=== PATIENT | female | born 1960 | race Caucasian/White ===

== ENCOUNTER → 2018-10-12 15:19 | Outpatient (CLI) | payer OTHER, SELFPAY ==
--- NOTE | 2018-10-12 15:28 | XR_ITS ---
XR hip LT 2-3V w/pelvis HISTORY: ITS.REASON: LT HIP PAIN ORDERING PHYSICIAN: Varun Turcios MD PATIENT AGE: 58 years COMPARISON: None FINDINGS: No fracture or dislocation is evident. No significant degenerative change. No lytic or blastic change. Unremarkable soft tissues IMPRESSION: Negative hip
== END ==
PROVIDERS: PCP Family Medicine; Visit Provider Family Medicine
DX: M25.552 Pain in left hip (principal)
CPT/HCPCS: 73502

== ENCOUNTER → 2019-11-17 12:43 | Outpatient (CLI) | payer BC, SELFPAY ==
[2019-11-17 14:46] LABS: Basophils # 0.1 K/mm3 (0-0.2); Basophils % 1.2 % (0.1-2.0); Eosinophils % 0.5 % (0.1-12.0); Hematocrit 46.2 % (37.0-47.0); Hemoglobin 15.6 g/dL (12.2-16.2); Lymphocytes # 1.6 K/mm3 (0.7-4.5); Lymphocytes % 27.5 % (10-50); Mean Corpuscular HGB Conc 33.7 g/dL (31.8-35.4); Mean Corpuscular Hemoglobin 29.7 pg (27.0-31.2); Mean Corpuscular Volume 88.2 fl (81-99); Mean Platelet Volume 8.7 fl (7.4-10.4); Monocytes # 0.4 K/mm3 (0.1-1.0); Monocytes % 7.8 % (1.7-9.3); Neutrophils # 3.6 K/mm3 (1.8-7.8); Neutrophils % 63.1 % (37.0-80.0); Platelet Count 305 K/mm3 (142-424); Red Blood Count 5.24 M/mm3 (4.20-5.40); Red Cell Distribution Width 13.6 % (11.5-17.5); White Blood Count 5.7 K/mm3 (4.8-10.8)
== END ==
PROVIDERS: PCP Family Medicine; Visit Provider Physician Assistant
DX: Z20.828 Contact with and (suspected) exposure to other viral communicable diseases (principal); U07.1 COVID-19
CPT/HCPCS: 36415; 85025; U0003

== ENCOUNTER 2021-12-22 09:09 | Emergency (ER) | payer OTHER, SELFPAY ==
[2021-12-22 09:42] VITALS: BP 128/83; PULSE 95; RESP 18; TEMP 36.7; O2SAT 96; BMI 24.0
--- NOTE | 2021-12-22 09:48 | EXP.UTC ---
Discharge Plan Disposition Patient Disposition: Home, Self-Care Condition: Good Prescriptions Prescriptions: New amoxicillin [amoxicillin] 875 mg tablet 875 mg PO Q12H Qty: 20 0RF Referrals Follow up/Referrals: Varun Turcios MD [Primary Care Provider] - See instructions Activity Restrictions/Add. Instructions Additional Instructions/Restrictions: Drink plenty of fluids. Take tylenol for pain or fever. Take the medications as directed. Follow up with your regular doctor. Follow up with your dentist as soon as they can see you. GO TO THE ER FOR ANY WORSENING SYMPTOMS Clinical Impressions Clinical Impression: Abscess, dental, Jaw pain, Pain, dental Instructions Patient Instructions: Tooth Abscess, DI for Tooth Abscess Discharge ED Provider: Rizwan Sauer [facility] General Stated complaint: dental pain Mode of Arrival: Ambulatory Source of Information: Patient Limitations: No Limitations Time Seen by Provider: 12/22/21 09:48 Description of Symptoms (Recalled from Triage Doc. by RN): pt comes in with c/o dental pain. pt believes her wisdom tooth is infected. right side of pts face is swollen. symptoms have been ongoing since 12/20. HEENT Symptoms (Recalled from RN notes): Yes Resp Symptoms (Recalled from RN notes): No Skin Symptoms (Recalled from RN notes): No MS Symptoms (Recalled from RN notes): No Functional Status (Recalled from RN notes): n/a History of Present Illness Provider Complaint: she states that for the past 3 days she has had pain and swelling of her right lower jaw in her mouth. She believes that she has an infected tooth. She has an appointment at her dentist next week, but she is having swelling of her right cheek area. She denies any fever or chills. Related Data Previous Rx's Medication Instructions Recorded amoxicillin 875 mg tablet 875 mg PO Q12H #20 tabs 12/22/21 Allergies Allergy/AdvReac Type Severity Reaction Status Date / Time No Known Allergies Allergy Verified 12/22/21 09:45 Worker's Comp Is this a Worker's Comp case?: No PFSH PFSH Social History Smoking Status: Never smoker alcohol intake: never current occupational status: employed Travel in the last 8 weeks: None ROS Obtained: Yes All systems reviewed & no additional complaints except as documented Physical Exam General General appearance: alert and in no apparent distress Head Head exam: atraumatic, normocephalic and normal inspection Eye Eye exam: Present normal appearance, PERRL and EOMI ENT ENT exam: Present mucous membranes moist, TM's normal bilaterally and normal external ear exam Expanded ENT Exam Teeth exam: Present dental caries, fractured tooth # and gingival swelling Neck Neck exam: Present normal inspection, full ROM and trachea midline; Absent meningismus or lymphadenopathy Chest Chest inspection: Present normal inspection and symmetric chest wall rise; Absent tenderness Respiratory Respiratory exam: Present normal lung sounds bilaterally; Absent respiratory distress Cardiovascular Cardiovascular exam: Present regular rate and normal rhythm; Absent JVD Abdominal Exam Abdominal exam: Present soft and normal bowel sounds; Absent distention, tenderness or guarding Extremities Exam Extremities exam: Present normal inspection, full ROM and normal capillary refill; Absent calf tenderness Back Exam Back exam: Present normal inspection; Absent tenderness Neurological Exam Neurological exam: Present alert and oriented X3 Psychiatric Psychiatric exam: Present normal affect and normal mood Skin Skin exam: Present warm, dry, intact and normal color Lymphatic Lymphatic Findings: no adenopathy Medical Decision Making Medical Records Medical records reviewed: No I reviewed the patient's medical records. Andrew Inquiry Pt receiving controlled substance: No Vital Signs: 12/22/21 09:42 Temperature 98.0 F Temperature Source Oral Pulse Rate [Left Radial] 95 H Resp
[2021-12-22 10:39] VITALS: BP 128/83; PULSE 95; RESP 18; TEMP 36.7
== END 2021-12-22 10:39 | disposition home or self-care (01) ==
PROVIDERS: Emergency Provider Nurse Practitioner Family; PCP Family Medicine
DX: K04.7 Periapical abscess without sinus (principal); R68.84 Jaw pain
CPT/HCPCS: 96372; 99213; G0463; J0696

== ENCOUNTER 2023-05-09 15:17 | Inpatient (IN) | payer MEDICARE, SELFPAY ==
[2023-05-09 15:41] VITALS: BP 133/72; PULSE 102; RESP 24; TEMP 36.5; O2SAT 91
[2023-05-09 15:47] VITALS: BMI 25.4
--- NOTE | 2023-05-09 16:16 | XR_ITS ---
PROCEDURE INFORMATION: Exam: XR Chest Exam date and time: 05/09/2023 4:47 PM Age: 63 years old Clinical indication: Condition or disease; Other: Covid; Additional info: Covid, hypoxia TECHNIQUE: Imaging protocol: Radiologic exam of the chest. Views: 1 view. COMPARISON: No relevant prior studies available. FINDINGS: Lungs: There are minimally increased interstitial markings in the lung bases, age indeterminate without prior study for comparison. The lungs appear. No focal areas of consolidation. Pleural spaces: No pleural effusions. Negative for pneumothorax. Heart/Mediastinum: Cardiac silhouette and pulmonary vasculature are within range of normal. Calcified mediastinal lymph nodes indicate prior granulomatous disease. Bones/joints: There is no evidence of acute fracture. IMPRESSION: Minimally increased interstitial markings in the lung bases, age indeterminate without prior study for comparison.
--- NOTE | 2023-05-09 16:44 | P.HP_ITS ---
History of Present Illness *Admission Date: 05/09/23 *Reason for visit:: covid with hypoxic respiratory failure *History of present illness: Ms. Hayward is a 63-year-old female who was seen in the office last week and tested positive for COVID-19. She was given Paxlovid but did not take the medication due to fear of side effects. She states this is the second time she has had COVID. She has had issues with her lungs since the first episode of COVID. Her oxygen has been lower and she has had periods of wheezing and shortness of breath. During this episode of COVID, her oxygen has been in the 80s at home and drops when she walks. She is extremely short of breath and has been wheezing. She has not had any imaging with either COVID episode. She has also not had any inhalers or neb treatments. Her oxygen was 84% on room air in the office and she was started on 2 L of oxygen and directly admitted. [facility] Disclaimer: The information contained in this section may have been updated after the patient was seen, as this information can be updated by other users. Medical History Abscess, dental COVID-19 Tobacco use Surgical History (Updated 05/09/23 @ 16:48 by YANICK Quiros) History of tooth extraction Family History (Updated 05/09/23 @ 16:48 by YANICK Quiros) Coronary artery disease Hyperlipidemia Cancer Social History (Updated 05/09/23 @ 16:20 by Atiya Mack RN) Smoking Status: Current every day smoker alcohol intake: never current occupational status: employed and retired Travel in the last 8 weeks: None Review of Systems Constitutional Constitutional: Reports body ache(s), Reports chills, Reports fatigue, Reports fever(s) and Reports weakness Eyes Eyes: Denies blurry vision and Denies diplopia ENT Ears, Nose, Mouth, and Throat: Reports nasal congestion, Reports sore throat and Reports vertigo *Cardiovascular Cardiovascular: Reports chest pain and Reports dyspnea *Respiratory Respiratory: Reports cough, Reports dyspnea and Reports wheezing *Gastrointestinal Gastrointestinal: Denies abdominal pain, Denies loose stools, Denies nausea and Denies vomiting *Genitourinary Genitourinary: Denies difficulty voiding and Denies dysuria *Musculoskeletal Musculoskeletal: Denies arthralgias and Reports myalgias *Neurologic Neurologic: Reports vertigo and Reports weakness Endocrine Endocrine: Reports fatigue Allergic/Immunologic Allergic/Immunologic: Reports wheezing Meds Home Medications and Allergies New Prescriptions to Start Prescriptions: Allergies Allergy/AdvReac Type Severity Reaction Status Date / Time No Known Allergies Allergy Verified 12/22/21 09:45 Exam Data for Last 24 hours Vital signs and Labs for Last 24 Hours: Temp Pulse Resp BP Pulse Ox O2 Del Method 97.7 F 102 H 24 133/72 91 L Room Air 05/09/23 15:41 05/09/23 15:41 05/09/23 15:41 05/09/23 15:41 05/09/23 15:41 05/09/23 15:41 I & O for Last 24 hours: Intake & Output 05/07/23 05/08/23 05/09/23 05/10/23 11:59 11:59 11:59 11:59 Weight 148 lb 2 oz Constitutional Constitutional: mild distress *Routine HEENT Exam Head: Present normocephalic and atraumatic Eye: Present EOMI and PERRL ENT: Present mucous membranes dry *Routine Neck Exam Neck: Present supple and full ROM *Routine Respiratory Exam Respiratory: Present wheezes; Absent rales *Routine Cardiovascular Exam Cardiovascular: Present RRR and tachycardia *Routine Abdominal Exam Abdominal: Present soft and normoactive bowel sounds; Absent tenderness *Routine Rectal Exam Rectal:: deferred *Routine Genitalia Exam Genitalia:: deferred *Routine Extremities Exam Extremities: Absent cyanosis, clubbing or edema *Routine Skin Exam Skin: Present intact; Absent erythema *Routine Neurological Exam Neurological: Present alert and oriented X3 Assessment and Plan *Assessment and plan (1) COVID-19: Status: Acute Category: Medical Code(s): U07.1 - COVID-19 (2) Hypoxic respiratory failure: Status: Acute Category: Medical Code(s): J96.91 - Respiratory failure, unspecified with hypoxia Plan Patient was placed on 2L NC in our office and directly admitted. Covid protocols were ordered. Will discuss further care with Dr. Turcios. Dr. Turcios entry - Saw patient, agree with above note.
--- NOTE | 2023-05-09 16:58 | PC.NURSE ---
arrived to floor by w/c from office at 3:27
[2023-05-09] MEDS: 0.9 % SODIUM CHLORIDE 1000ML 1,000 ML 100 ML IV (17:02)
[2023-05-09] MEDS: ASCORBIC ACID 500MG TAB 500 MG PO ×2 (17:04→21:13)
[2023-05-09] MEDS: ERGOCALCIFEROL 50,000 UNITS (1.25MG) CAPSULE 50000 UNIT PO (17:05)
[2023-05-09] MEDS: DEXAMETHASONE 4MG/ML 1ML VIAL 6 MG IV (17:06)
[2023-05-09] MEDS: ZINC SULFATE 220MG CAPSULE 220 MG PO (17:07)
[2023-05-09 18:13] LABS: Alanine Aminotransferase 22 U/L (12-78); Albumin Level 3.2 g/dl (3.5-5.0); Alkaline Phosphatase 104 U/L (38-126); Anion Gap 6.7 mEq/L (5-15); Aspartate Amino Transferase 31 U/L (14-36); Bilirubin,Total 0.6 mg/dl (0.2-1.3); Blood Urea Nitrogen 6 mg/dl (7-17); Calcium 8.8 mg/dl (8.4-10.2); Carbon Dioxide 36 mmol/L (22.0-30.0); Chloride 96 mmol/L (98-107); Creatinine Clearance Estimated 59 mL/min (50-200); Estimated Glomerular Filt Rate 100 ml/min (>60); GFR (African American) 121 ML/MIN (>60); Globulin 3.2 g/dL (1.3-3.2); Glucose 111 mg/dl (74-100); Lactic Acid 0.8 mmol/L (0.7-2.1); Potassium 3.7 mmoL/L (3.5-5.1); Sodium 135 mmol/L (136-145); Total Protein,Serum 6.4 g/dl (6.3-8.2)
[2023-05-09 18:18] LABS: C-Reactive Protein 135.8 mg/L (0-4)
[2023-05-09 18:19] LABS: D-Dimer 0.51 ug/mL (0.0-0.5)
[2023-05-09 18:38] LABS: Basophils % 0.1 % (0.1-2.0); Eosinophils % 0.1 % (0.1-12.0); Hemoglobin 13.1 g/dL (12.2-16.2); Lymphocytes # 1.7 K/mm3 (0.7-4.5); Lymphocytes % 10.7 % (10-50); Mean Corpuscular HGB Conc 32.9 g/dL (31.8-35.4); Mean Corpuscular Volume 88.2 fl (81-99); Mean Platelet Volume 9.5 fl (7.4-10.4); Monocytes # 0.9 K/mm3 (0.1-1.0); Neutrophils # 12.9 K/mm3 (1.8-7.8); Neutrophils % 83.1 % (37.0-80.0); Platelet Count 425 K/mm3 (142-424); Red Blood Count 4.53 M/mm3 (4.20-5.40); Red Cell Distribution Width 12.8 % (11.5-17.5); White Blood Count 15.5 K/mm3 (4.8-10.8)
[2023-05-09 18:41] LABS: MANUAL DIFFERENTIAL MANUAL DIFFERENTIAL (MANUAL DIFF)
--- NOTE | 2023-05-09 18:45 | PC.NURSE ---
patient is alert and oriented x4. direct admit from drs office. at bedside. o2 sats staying at 92-93 percent with 02 going 2l nc. denies any pain at this time.
[2023-05-09 18:58] LABS: Coronavirus 19, PCR Detected (NotDetected); Influenza A, PCR Not Detected (NotDetected); Influenza B, PCR Not Detected (NotDetected)
[2023-05-09] MEDS: IPRATROPIUM/ALBUTEROL 3 ML NEB IH (19:07)
[2023-05-09 19:12] VITALS: PULSE 91; PULSE 98; O2SAT 93
[2023-05-09 19:32] LABS: Lactate Dehydrogenase 165 U/L (313-618)
--- NOTE | 2023-05-09 19:32 | ECG_ITS ---
APPROVED REPORT Exam: Resting ECG HR:99 bpm ECG Measurements Heart Rate 99 AXES TX 135 P 80 QRSd 82 QRS 64 QT 331 T 77 QTc 387 Conclusion SINUS RHYTHM MINIMAL ST DEPRESSION [0.025+ mV ST DEPRESSION] BORDERLINE ECG UNCONFIRMED REPORT Electronically signed by : Rasta Kaur MD 05/10/2023 06:28:11
[2023-05-09 20:00] VITALS: BP 120/67; PULSE 96; RESP 20; TEMP 37.2; O2SAT 90; O2SAT 94
[2023-05-09] MEDS: FAMOTIDINE 20MG TABLET 20 MG PO (21:13)
[2023-05-09] MEDS: ENOXAPARIN 40MG/0.4ML SYRINGE 40 MG SQ (21:13)
[2023-05-09 21:58] LABS: Lymphocytes % 16 % (10-50); Monocytes % 3 % (2-9); Neutrophils % 80 % (42-76); Platelet Estimate Normal; RBC Morphology Normal; Total Cells Counted 100
[2023-05-10] VITALS (11 sets, daily range): BP systolic 108–118; BP diastolic 61–68; PULSE 70–102; RESP 18–20; TEMP 36.4–37.1; O2SAT 88–97; BMI 25.9
[2023-05-10] MEDS: 0.9 % SODIUM CHLORIDE 1000ML 1,000 ML 100 ML IV (03:19)
--- NOTE | 2023-05-10 04:22 | PC.NURSE ---
Pt is alert and oriented x4, and currently on 3L of O2 and tolerating it well. Pt remains in precautions for COVID. Pt has no complaints and denies needs at this time
[2023-05-10] MEDS: IPRATROPIUM/ALBUTEROL 3 ML NEB IH ×4 (06:10→22:15)
--- NOTE | 2023-05-10 06:19 | PC.NURSE ---
RT notified nurse Pt now on 1L of O2 sating at 96%
[2023-05-10 07:56] LABS: Chloride 100 mmol/L (98-107); Sodium 137 mmol/L (136-145)
[2023-05-10 07:59] LABS: Blood Urea Nitrogen 5 mg/dl (7-17); Calcium 8.6 mg/dl (8.4-10.2); Carbon Dioxide 33 mmol/L (22.0-30.0); Creatinine Clearance Estimated 61 mL/min (50-200); Estimated Glomerular Filt Rate 124 ml/min (>60); GFR (African American) 150 ML/MIN (>60); Glucose 139 mg/dl (74-100)
[2023-05-10 08:03] LABS: Basophils % 0.1 % (0.1-2.0); Eosinophils # 0.1 K/mm3 (0.0-0.4); Eosinophils % 0.9 % (0.1-12.0); Hematocrit 39.9 % (37.0-47.0); Hemoglobin 12.9 g/dL (12.2-16.2); Lymphocytes # 1.3 K/mm3 (0.7-4.5); Lymphocytes % 9.5 % (10-50); Mean Corpuscular HGB Conc 32.3 g/dL (31.8-35.4); Mean Corpuscular Hemoglobin 28.8 pg (27.0-31.2); Mean Corpuscular Volume 89.1 fl (81-99); Mean Platelet Volume 9.5 fl (7.4-10.4); Monocytes # 0.5 K/mm3 (0.1-1.0); Monocytes % 3.6 % (1.7-9.3); Neutrophils # 12.1 K/mm3 (1.8-7.8); Neutrophils % 85.9 % (37.0-80.0); Platelet Count 439 K/mm3 (142-424); Red Blood Count 4.47 M/mm3 (4.20-5.40); Red Cell Distribution Width 12.9 % (11.5-17.5); White Blood Count 14.1 K/mm3 (4.8-10.8)
[2023-05-10 08:05] LABS: MANUAL DIFFERENTIAL MANUAL DIFFERENTIAL (MANUAL DIFF)
--- NOTE | 2023-05-10 09:16 | EXP.ACUTE.PN ---
Subjective *Date: 05/10/23 *Time: 09:16 Interval history: Patient with no new complaints today, feels a little better today. Medical Exam Vital signs and Labs for Last 24 Hours: Vital Signs Temp Pulse Pulse Resp BP Pulse Ox O2 Del Method 05/10/23 08:00 97.6 F 91 H 20 108/61 L 94 L Nasal Cannula 05/10/23 06:53 Nasal Cannula 05/10/23 06:10 70 05/10/23 06:10 75 05/10/23 06:10 96 Nasal Cannula 05/10/23 05:00 Nasal Cannula 05/10/23 04:00 97.6 F 75 18 114/67 97 Nasal Cannula 05/10/23 00:00 98.7 F 74 18 108/66 L 96 Nasal Cannula 05/10/23 03:00 Nasal Cannula 05/10/23 00:55 Nasal Cannula 05/09/23 23:00 Nasal Cannula 05/09/23 21:00 Nasal Cannula 05/09/23 20:00 94 L Nasal Cannula 05/09/23 20:00 99.0 F 96 H 20 120/67 90 L Nasal Cannula 05/09/23 19:12 91 H 05/09/23 19:12 98 H 05/09/23 19:12 93 L Nasal Cannula 05/09/23 18:38 Nasal Cannula 05/09/23 17:00 Nasal Cannula 05/09/23 15:41 97.7 F 102 H 24 133/72 91 L Room Air O2 Flow Rate 05/10/23 08:00 2 05/10/23 06:53 1 05/10/23 06:10 05/10/23 06:10 05/10/23 06:10 2 05/10/23 05:00 2 05/10/23 04:00 2 05/10/23 00:00 2 05/10/23 03:00 2 05/10/23 00:55 2 05/09/23 23:00 2 05/09/23 21:00 2 05/09/23 20:00 2 05/09/23 20:00 2 05/09/23 19:12 05/09/23 19:12 05/09/23 19:12 2 05/09/23 18:38 05/09/23 17:00 2 05/09/23 15:41 Intake and Output 05/09/23 05/10/2305/10/24 23:59 07:59 15:59 Intake Total 240 / 480 240 / 510 270 / 510 Output Total 0 / 0 0 / 0 0 / 0 Balance 240 / 480 240 / 510 270 / 510 Intake: Intake, Oral Amount 240 / 480 240 / 510 270 / 510 Output: Output, Urine Amount 0 / 0 0 / 0 0 / 0 Other: Number of Unmeasured Voids 1 1 Weight 151 lb 14.4 oz Patient Weight 05/10/23 23:59 Weight 151 lb 14.4 oz Laboratory Results - last 24 hr 05/09/23 17:22: WBC 15.5 H, RBC 4.53, Hgb 13.1, Hct 40.0, MCV 88.2, MCH 29.0, MCHC 32.9, RDW 12.8, Plt Count 425 H, MPV 9.5, Neut % (Auto) 83.1 H, Lymph % (Auto) 10.7, [place] % (Auto) 6.0, Eos % (Auto) 0.1, Baso % (Auto) 0.1, Neut # (Auto) 12.9 H, Lymph # (Auto) 1.7, [place] # (Auto) 0.9, Eos # (Auto) 0.0, Baso # (Auto) 0.0, Total Counted 100, Neutrophils % (Manual) 80 H, Lymphocytes % (Manual) 16, Monocytes % (Manual) 3, Basophils % (Manual) 1.0, Platelet Estimate Normal, RBC Morphology Normal, D-Dimer 0.51 H, Sodium 135 L, Potassium 3.7, Chloride 96 L, Carbon Dioxide 36 H, Anion Gap 6.7, BUN 6 L, Creatinine 0.60, Estimated Creat Clear 59, Estimated GFR 100, Est GFR ( Amer) 121, Glucose 111 H, Lactate 0.8, Calcium 8.8, Total Bilirubin 0.6, AST 31, ALT 22, Alkaline Phosphatase 104, Lactate Dehydrogenase 165 L, C-Reactive Protein 135.8 H, Total Protein 6.4, Albumin 3.2 L, Globulin 3.2, Albumin/Globulin Ratio 1.0 L 05/09/23 17:26: SARS-CoV-2 (PCR) Detected A, Influenza A Untype (PCR) Not detected, Influenza Type B (PCR) Not detected 05/10/23 07:20: WBC 14.1 H, RBC 4.47, Hgb 12.9, Hct 39.9, MCV 89.1, MCH 28.8, MCHC 32.3, RDW 12.9, Plt Count 439 H, MPV 9.5, Neut % (Auto) 85.9 H, Lymph % (Auto) 9.5 L, [place] % (Auto) 3.6, Eos % (Auto) 0.9, Baso % (Auto) 0.1, Neut # (Auto) 12.1 H, Lymph # (Auto) 1.3, [place] # (Auto) 0.5, Eos # (Auto) 0.1, Baso # (Auto) 0.0, Sodium 137, Potassium 3.0 L, Chloride 100, Carbon Dioxide 33 H, Anion Gap 7.0, BUN 5 L, Creatinine 0.50 L, Estimated Creat Clear 61, Estimated GFR 124, Est GFR ( Amer) 150 D, Glucose 139 H D, Calcium 8.6 I & O for Labs for Last 24 Hours: Intake & Output 05/07/23 05/08/23 05/09/23 05/10/23 23:59 23:59 23:59 23:59 Intake Total 240 / 480 510 / 510 Output Total 0 / 0 0 / 0 Balance 240 / 480 510 / 510 Weight 148 lb 2 oz 151 lb 14.4 oz Constitutional: Present no acute distress Respiratory: Present wheezes (rare) and normal respiratory effort Cardiac: Present Reg Rate and Rhythm GI: Present normal bowel sounds; Absent tenderness Extremities: Present normal inspection and full ROM Skin: Present intact; Absent erythema Neuro: Present Grossly Intact and moves all extremities Assessment and Plan *Assessment and plan (1) COVID-19: Status: Acute Category: Medical Code(s): U07.1 - COVID-19 (2) Hypoxic respiratory failure: Status: Acute Category: Medical Code(s): J96.91 - Respiratory failure, unspecified with hypoxia (3) Hypokalemia: Status: Acute Category: Medical Code(s): E87.6 - Hypokalemia Plan Patient seems better today, replace potassium, wean supplemental oxygen when possible.
[2023-05-10 09:51] LABS: Lymphocytes % 7 % (10-50); Monocytes % 2 % (2-9); Neutrophils % 91 % (42-76); Platelet Estimate Normal; RBC Morphology Normal; Total Cells Counted 100
[2023-05-10] MEDS: ZINC SULFATE 220MG CAPSULE 220 MG PO (10:31)
[2023-05-10] MEDS: ASCORBIC ACID 500MG TAB 500 MG PO ×2 (10:31→21:14)
[2023-05-10] MEDS: FAMOTIDINE 20MG TABLET 20 MG PO ×2 (10:31→21:14)
[2023-05-10] MEDS: AZITHROMYCIN 250MG TABLET 500 MG PO (10:32)
[2023-05-10] MEDS: POTASSIUM CHLORIDE 20MEQ TAB 20 MEQ PO ×3 (10:32→21:13)
[2023-05-10] MEDS: DEXAMETHASONE 4MG/ML 1ML VIAL 6 MG IV (10:35)
--- NOTE | 2023-05-10 17:51 | PC.NURSE ---
Patient weaned to 1LNC. VS stable. Lung sounds expiratory wheezing in upper lobes, diminished in bases.
[2023-05-11] VITALS (10 sets, daily range): BP systolic 121–131; BP diastolic 59–71; PULSE 80–99; RESP 16–20; TEMP 36.4–36.8; O2SAT 90–95; BMI 25.9
--- NOTE | 2023-05-11 04:18 | PC.NURSE ---
PT IS ALERT AND ORIENTED X4. PT REMAINS IN [place]/[employer]TACT PRECAUTIONS AND IS CURRENTLY ON 1L OF O2, SATING AT 93%. PT HAS COMPLAINED OF TROUBLE SWALLOWING PILLS. MEDS PUT IN APPLESAUCE TO EASE SWALLOWING. PT HAS RESTED WELL THIS SHIFT, DENIES PAIN, AND OTHER NEEDS AT THIS TIME.
[2023-05-11] MEDS: IPRATROPIUM/ALBUTEROL 3 ML NEB IH ×3 (06:30→19:34)
--- NOTE | 2023-05-11 09:13 | EXP.ACUTE.PN ---
Subjective *Date: 05/11/23 *Time: 09:13 Interval history: Patient with no new complaints today, still with some SOB, attempted to wean supplemental O2 off this morning and sats dropped, she was put back on 2 L/min/nc Medical Exam Vital signs and Labs for Last 24 Hours: Vital Signs Temp Pulse Pulse Resp BP Pulse Ox O2 Del Method 05/11/23 08:00 97.6 F 97 H 16 121/66 94 L Nasal Cannula 05/11/23 07:50 Nasal Cannula 05/11/23 06:30 90 05/11/23 06:30 90 05/11/23 06:30 91 L Nasal Cannula 05/11/23 07:00 Nasal Cannula 05/11/23 04:00 97.7 F 80 18 126/71 93 L Room Air 05/11/23 04:36 Nasal Cannula 05/11/23 03:00 Nasal Cannula 05/11/23 00:00 98.3 F 95 H 18 122/67 95 Nasal Cannula 05/11/23 01:00 Nasal Cannula 05/10/23 20:00 97.8 F 89 18 118/68 93 L Nasal Cannula 05/10/23 23:00 Nasal Cannula 05/10/23 21:00 Nasal Cannula 05/10/23 20:00 91 L Nasal Cannula 05/10/23 20:00 97.8 F 89 18 118/68 93 L Nasal Cannula 05/10/23 22:16 Nasal Cannula 05/10/23 22:16 90 05/10/23 22:15 93 H 05/10/23 18:32 Nasal Cannula 05/10/23 17:20 Room Air 05/10/23 16:00 98.2 F 102 H 20 117/62 92 L Nasal Cannula 05/10/23 15:10 Nasal Cannula 05/10/23 14:28 98 H 05/10/23 14:28 92 H 05/10/23 14:28 95 Nasal Cannula 05/10/23 13:12 Nasal Cannula 05/10/23 11:07 Nasal Cannula 05/10/23 12:27 88 L Room Air 05/10/23 10:15 83 05/10/23 10:15 81 05/10/23 10:15 97 Nasal Cannula O2 Flow Rate 05/11/23 08:00 2 05/11/23 07:50 2 05/11/23 06:30 05/11/23 06:30 05/11/23 06:30 1 05/11/23 07:00 1 05/11/23 04:00 1 05/11/23 04:36 1 05/11/23 03:00 1 05/11/23 00:00 1 05/11/23 01:00 1 05/10/23 20:00 1 05/10/23 23:00 1 05/10/23 21:00 1 05/10/23 20:00 1 05/10/23 20:00 2 05/10/23 22:16 1 05/10/23 22:16 05/10/23 22:15 05/10/23 18:32 1 05/10/23 17:20 05/10/23 16:00 2 05/10/23 15:10 1 05/10/23 14:28 05/10/23 14:28 05/10/23 14:28 1 05/10/23 13:12 1 05/10/23 11:07 1 05/10/23 12:27 05/10/23 10:15 05/10/23 10:15 05/10/23 10:15 2 Intake and Output 05/10/23 05/11/23 05/11/23 23:59 07:59 15:59 Intake Total 470 / 3380 240 / 610 370 / 610 Output Total 0 / 0 0 / 0 Balance 470 / 3380 240 / 610 370 / 610 Intake: Intake, Oral Amount 470 / 1490 240 / 610 370 / 610 Output: Output, Urine Amount 0 / 0 0 / 0 Other: Number of Unmeasured Voids 1 1 Number of Bowel Movements 1 Weight 152 lb Patient Weight 05/11/23 23:59 Weight 152 lb Laboratory Results - last 24 hr 05/10/23 07:20: Total Counted 100, Neutrophils % (Manual) 91 H, Lymphocytes % (Manual) 7 L, Monocytes % (Manual) 2, Platelet Estimate Normal, RBC Morphology Normal I & O for Labs for Last 24 Hours: Intake & Output 05/08/23 05/09/23 05/10/23 05/11/23 23:59 23:59 23:59 23:59 Intake Total 240 / 480 3140 / 3380 610 / 610 Output Total 0 / 0 0 / 0 0 / 0 Balance 240 / 480 3140 / 3380 610 / 610 Weight 148 lb 2 oz 151 lb 14.4 oz 152 lb Constitutional: Present no acute distress Respiratory: Present wheezes (rare) and normal respiratory effort Cardiac: Present Reg Rate and Rhythm GI: Present normal bowel sounds; Absent tenderness Extremities: Present normal inspection and full ROM Skin: Present intact; Absent erythema Neuro: Present Grossly Intact and moves all extremities Assessment and Plan *Assessment and plan (1) COVID-19: Status: Acute Category: Medical Code(s): U07.1 - COVID-19 (2) Hypoxic respiratory failure: Status: Acute Category: Medical Code(s): J96.91 - Respiratory failure, unspecified with hypoxia (3) Hypokalemia: Status: Acute Category: Medical Code(s): E87.6 - Hypokalemia Plan Patient has been unable to take much potassium, will try again today, continue current treatment.
[2023-05-11 10:15] LABS: Basophils % 0.1 % (0.1-2.0); Eosinophils # 0.1 K/mm3 (0.0-0.4); Eosinophils % 0.3 % (0.1-12.0); Hematocrit 34.4 % (37.0-47.0); Hemoglobin 12.3 g/dL (12.2-16.2); Lymphocytes # 1.7 K/mm3 (0.7-4.5); Lymphocytes % 10.1 % (10-50); Mean Corpuscular HGB Conc 35.7 g/dL (31.8-35.4); Mean Corpuscular Hemoglobin 31.5 pg (27.0-31.2); Mean Corpuscular Volume 88.2 fl (81-99); Mean Platelet Volume 8.8 fl (7.4-10.4); Monocytes # 0.7 K/mm3 (0.1-1.0); Monocytes % 4.2 % (1.7-9.3); Neutrophils # 14.6 K/mm3 (1.8-7.8); Neutrophils % 85.2 % (37.0-80.0); Platelet Count 453 K/mm3 (142-424); Red Cell Distribution Width 13.1 % (11.5-17.5); White Blood Count 17.1 K/mm3 (4.8-10.8)
[2023-05-11 10:17] LABS: Chloride 102 mmol/L (98-107); Sodium 137 mmol/L (136-145)
[2023-05-11 10:20] LABS: Blood Urea Nitrogen 10 mg/dl (7-17); Creatinine Clearance Estimated 61 mL/min (50-200); Estimated Glomerular Filt Rate 124 ml/min (>60); GFR (African American) 150 ML/MIN (>60)
[2023-05-11 10:21] LABS: Calcium 8.5 mg/dl (8.4-10.2); Carbon Dioxide 33 mmol/L (22.0-30.0); Glucose 91 mg/dl (74-100)
[2023-05-11 10:28] LABS: MANUAL DIFFERENTIAL MANUAL DIFFERENTIAL (MANUAL DIFF)
[2023-05-11] MEDS: ASCORBIC ACID 500MG TAB 500 MG PO ×3 (11:05→21:36)
[2023-05-11] MEDS: AZITHROMYCIN 250MG TABLET 500 MG PO (11:05)
[2023-05-11] MEDS: DEXAMETHASONE 4MG/ML 1ML VIAL 6 MG IV (11:05)
[2023-05-11] MEDS: POTASSIUM CHLORIDE 20MEQ TAB 20 MEQ PO ×3 (11:06→21:36)
[2023-05-11] MEDS: FAMOTIDINE 20MG TABLET 20 MG PO ×2 (11:06→21:36)
[2023-05-11] MEDS: ZINC SULFATE 220MG CAPSULE 220 MG PO (11:07)
[2023-05-11 12:25] LABS: Eosinophils % 1 % (0-3); Lymphocytes % 8 % (10-50); Monocytes % 5 % (2-9); Neutrophils % 86 % (42-76); Platelet Estimate Slight Increase; RBC Morphology Normal; Total Cells Counted 100
--- NOTE | 2023-05-11 18:32 | PC.NURSE ---
Pt tolerating PO meds better today. Pt hasn't c/o pain this shift. VSS. Pt remains on RA at this time. Call light within reach.
[2023-05-12] VITALS (10 sets, daily range): BP systolic 113–134; BP diastolic 67–76; PULSE 78–113; RESP 16–22; TEMP 36.6–36.8; O2SAT 90–94; BMI 25.9
--- NOTE | 2023-05-12 08:04 | EXP.ACUTE.PN ---
Subjective *Date: 05/12/23 *Time: 09:00 Interval history: Patient states she feels better than last week. She continues with some cough but is less. She denies any pain. She does ambulate to the bathroom without problems but is short of breath with activity. She is eating okay. Bowels have not moved. Medical Exam Vital signs and Labs for Last 24 Hours: Vital Signs Temp Pulse Pulse Resp BP Pulse Ox O2 Del Method 05/12/23 04:00 98.0 F 78 18 118/67 94 L Nasal Cannula 05/12/23 06:58 Room Air 05/12/23 04:39 Room Air 05/12/23 03:00 Room Air 05/12/23 01:00 Room Air 05/12/23 00:00 98.3 F 85 18 113/68 94 L Room Air 05/11/23 20:00 98.0 F 91 H 18 123/66 94 L Room Air 05/11/23 20:00 Room Air 05/11/23 22:43 Room Air 05/11/23 21:00 Room Air 05/11/23 19:35 Nasal Cannula 05/11/23 19:35 90 05/11/23 19:34 93 H 05/11/23 18:38 Room Air 05/11/23 17:00 Nasal Cannula 05/11/23 15:00 Nasal Cannula 05/11/23 16:00 98.0 F 91 H 20 131/59 L 90 L Room Air 05/11/23 13:00 Nasal Cannula 05/11/23 11:57 97.9 F 99 H 18 123/64 92 L Room Air 05/11/23 11:00 Nasal Cannula 05/11/23 09:00 Nasal Cannula 05/11/23 10:30 94 H 05/11/23 10:30 93 H 05/11/23 10:30 94 L Nasal Cannula O2 Flow Rate FiO2 05/12/23 04:00 05/12/23 06:58 05/12/23 04:39 05/12/23 03:00 05/12/23 01:00 05/12/23 00:00 05/11/23 20:00 05/11/23 20:00 05/11/23 22:43 05/11/23 21:00 05/11/23 19:35 2 28 05/11/23 19:35 05/11/23 19:34 05/11/23 18:38 05/11/23 17:00 1 05/11/23 15:00 1 05/11/23 16:00 05/11/23 13:00 2 05/11/23 11:57 05/11/23 11:00 2 05/11/23 09:00 2 05/11/23 10:30 05/11/23 10:30 05/11/23 10:30 2 Intake and Output 05/11/23 05/12/23 05/12/23 19:59 03:59 11:59 Intake Total 1580 / 1580 240 / 1820 Output Total 0 0 Balance 1579 / 1579 240 / 1819 0 / 1819 Intake: Intake, Oral Amount 1580 / 1580 240 / 1820 Output: Output, Urine Amount 0 0 Other: Number of Voids 0 Number of Unmeasured Voids 1 2 1 Weight 152 lb Patient Weight 05/12/23 11:59 Weight 152 lb Laboratory Results - last 24 hr 05/11/23 09:50: WBC 17.1 H, RBC 3.90 L, Hgb 12.3, Hct 34.4 L, MCV 88.2, MCH 31.5 H, MCHC 35.7 H, RDW 13.1, Plt Count 453 H, MPV 8.8, Neut % (Auto) 85.2 H, Lymph % (Auto) 10.1, [place] % (Auto) 4.2, Eos % (Auto) 0.3, Baso % (Auto) 0.1, Neut # (Auto) 14.6 H, Lymph # (Auto) 1.7, [place] # (Auto) 0.7, Eos # (Auto) 0.1, Baso # (Auto) 0.0, Total Counted 100, Neutrophils % (Manual) 86 H, Lymphocytes % (Manual) 8 L, Monocytes % (Manual) 5, Eosinophils % (Manual) 1, Platelet Estimate Slight increase, RBC Morphology Normal, Sodium 137, Potassium 4.0 D, Chloride 102, Carbon Dioxide 33 H, Anion Gap 6.0, BUN 10 D, Creatinine 0.50 L, Estimated Creat Clear 61, Estimated GFR 124, Est GFR ( Amer) 150, Glucose 91, Calcium 8.5 I & O for Labs for Last 24 Hours: Intake & Output 05/09/23 05/10/23 05/11/23 05/12/23 11:59 11:59 11:59 11:59 Intake Total 750 / 750 3240 / 3240 1820 / 1820 Output Total 0 / 0 0 / 0 Balance 750 / 750 3240 / 3240 1819 / 1819 Weight 151 lb 14.4 oz 152 lb 152 lb Constitutional: Present no acute distress Comment:: Sitting on bedside starting to eat her breakfast. Respiratory: Present diminished air movement (Posteriorly) Cardiac: Present Reg Rate and Rhythm GI: Present soft; Absent distention or tenderness Extremities: Present normal inspection; Absent tenderness or edema Neuro: Present alert and oriented x 3 Assessment and Plan *Assessment and plan (1) COVID-19: Status: Acute Category: Medical Code(s): U07.1 - COVID-19 (2) Hypoxic respiratory failure: Status: Acute Category: Medical Code(s): J96.91 - Respiratory failure, unspecified with hypoxia (3) Hypokalemia: Status: Acute Category: Medical Code(s): E87.6 - Hypokalemia Plan Continue current treatment with COVID protocol. Wean from oxygen. Currently from notes it appears O2 sats are 94% on O2 per nasal cannula at 2 L/min. Dr. Turcios entry - Saw patient, agree with above note. Will attempt to wean supplemental oxygen off today.
[2023-05-12] MEDS: ASCORBIC ACID 500MG TAB 500 MG PO ×4 (09:10→20:59)
[2023-05-12] MEDS: AZITHROMYCIN 250MG TABLET 500 MG PO (09:11)
[2023-05-12] MEDS: ZINC SULFATE 220MG CAPSULE 220 MG PO (09:11)
[2023-05-12] MEDS: DEXAMETHASONE 4MG/ML 1ML VIAL 6 MG IV (09:11)
[2023-05-12] MEDS: POTASSIUM CHLORIDE 20MEQ TAB 20 MEQ PO ×2 (09:11→20:59)
[2023-05-12] MEDS: FAMOTIDINE 20MG TABLET 20 MG PO ×2 (09:11→20:59)
[2023-05-12] MEDS: IPRATROPIUM/ALBUTEROL 3 ML NEB IH ×3 (09:29→19:18)
--- NOTE | 2023-05-12 13:15 | PC.NURSE ---
pts 02 sat at rest is 89%-94% but when ambulating o2 drops to 86%.
[2023-05-13 04:00] VITALS: BP 128/78; PULSE 77; RESP 22; TEMP 37; O2SAT 94; BMI 25.9
[2023-05-13 06:21] VITALS: PULSE 78; PULSE 80; O2SAT 92
[2023-05-13] MEDS: IPRATROPIUM/ALBUTEROL 3 ML NEB IH ×2 (06:21→10:02)
--- NOTE | 2023-05-13 07:30 | EXP.PHA.PN ---
Subjective *Date: 05/13/23 *Time: 07:30 Medical Exam Vital signs and Labs for Last 24 Hours: Vital Signs Temp Pulse Pulse Resp BP Pulse Ox O2 Del Method 05/13/23 06:21 78 05/13/23 06:21 80 05/13/23 06:21 92 L Nasal Cannula 05/13/23 04:00 98.6 F 77 22 128/78 94 L Nasal Cannula 05/12/23 23:47 97.9 F 90 21 129/71 90 L Nasal Cannula 05/12/23 20:00 Nasal Cannula 05/12/23 20:00 97.9 F 104 H 22 134/70 92 L Nasal Cannula 05/12/23 19:20 94 H 05/12/23 19:20 100 H 05/12/23 19:20 94 L Room Air 05/12/23 18:03 Nasal Cannula 05/12/23 17:00 Room Air 05/12/23 16:00 98.1 F 104 H 18 121/76 91 L Nasal Cannula 05/12/23 15:00 Nasal Cannula 05/12/23 14:24 93 H 05/12/23 14:24 96 H 05/12/23 12:00 98.1 F 113 H 20 124/72 90 L Nasal Cannula 05/12/23 13:00 Nasal Cannula 05/12/23 11:00 Nasal Cannula 05/12/23 08:00 Nasal Cannula 05/12/23 09:00 Nasal Cannula 05/12/23 08:00 97.9 F 89 16 125/71 90 L Nasal Cannula 05/12/23 09:30 99 H 05/12/23 09:30 102 H O2 Flow Rate 05/13/23 06:21 05/13/23 06:21 05/13/23 06:21 1 05/13/23 04:00 1 05/12/23 23:47 1 05/12/23 20:00 1 05/12/23 20:00 1 05/12/23 19:20 05/12/23 19:20 05/12/23 19:20 05/12/23 18:03 2 05/12/23 17:00 05/12/23 16:00 1 05/12/23 15:00 2 05/12/23 14:24 05/12/23 14:24 05/12/23 12:00 1 05/12/23 13:00 2 05/12/23 11:00 2 05/12/23 08:00 2 05/12/23 09:00 2 05/12/23 08:00 1 05/12/23 09:30 05/12/23 09:30 Intake and Output 05/12/23 05/12/23 05/13/23 15:59 23:59 07:59 Intake Total 750 / 1290 240 / 1290 60 / 60 Output Total 0 / 0 0 / 0 0 / 0 Balance 750 / 1290 240 / 1290 60 / 60 Intake: Intake, Oral Amount 750 / 1290 240 / 1290 60 / 60 Output: Output, Urine Amount 0 / 0 0 / 0 0 / 0 Other: Number of Unmeasured Voids 1 1 1 Number of Bowel Movements 1 1 Weight 68.946 kg Patient Weight 05/13/23 23:59 Weight 68.946 kg I & O for Labs for Last 24 Hours: Intake & Output 05/10/23 05/11/23 05/12/23 05/13/23 23:59 23:59 23:59 23:59 Intake Total 3140 / 3380 2190 / 2430 1230 / 1290 60 / 60 Output Total 0 / 0 1 / 1 0 / 0 0 / 0 Balance 3140 / 3380 2189 / 2429 1230 / 1290 60 / 60 Weight 68.901 kg 68.946 kg 68.946 kg 68.946 kg Microbiology Reports for the Last 24 Hours: Microbiology 05/09/23 16:15 Sputum - Expectorated Sputum Gram Stain - Final The patient's infection will respond to the chosen ABx?: Yes Is the patient receiving the right drug, dose, and route?: Yes Could a more targeted ABx be ordered?: No (COVID)
[2023-05-13 07:59] VITALS: BP 129/72; PULSE 97; RESP 17; TEMP 36.8; O2SAT 92
--- NOTE | 2023-05-13 08:04 | EXP.ACUTE.PN ---
Subjective *Date: 05/13/23 *Time: 08:56 Interval history: Patient states she continues with exertional shortness of breath. O2 sats do drop in the 80s at times. She has an O2 sat monitor of her on he keeps track. She does ambulate to the bathroom and has set up in a chair. She is eating well. She denies chest pain. She is voiding QS and bowels have moved. Medical Exam Vital signs and Labs for Last 24 Hours: Vital Signs Temp Pulse Pulse Resp BP Pulse Ox O2 Del Method 05/13/23 07:59 98.2 F 97 H 17 129/72 92 L Nasal Cannula 05/13/23 06:21 78 05/13/23 06:21 80 05/13/23 06:21 92 L Nasal Cannula 05/13/23 04:00 98.6 F 77 22 128/78 94 L Nasal Cannula 05/12/23 23:47 97.9 F 90 21 129/71 90 L Nasal Cannula 05/12/23 20:00 Nasal Cannula 05/12/23 20:00 97.9 F 104 H 22 134/70 92 L Nasal Cannula 05/12/23 19:20 94 H 05/12/23 19:20 100 H 05/12/23 19:20 94 L Room Air 05/12/23 18:03 Nasal Cannula 05/12/23 17:00 Room Air 05/12/23 16:00 98.1 F 104 H 18 121/76 91 L Nasal Cannula 05/12/23 15:00 Nasal Cannula 05/12/23 14:24 93 H 05/12/23 14:24 96 H 05/12/23 12:00 98.1 F 113 H 20 124/72 90 L Nasal Cannula 05/12/23 13:00 Nasal Cannula 05/12/23 11:00 Nasal Cannula 05/12/23 09:00 Nasal Cannula 05/12/23 09:30 99 H 05/12/23 09:30 102 H O2 Flow Rate 05/13/23 07:59 1 05/13/23 06:21 05/13/23 06:21 05/13/23 06:21 1 05/13/23 04:00 1 05/12/23 23:47 1 05/12/23 20:00 1 05/12/23 20:00 1 05/12/23 19:20 05/12/23 19:20 05/12/23 19:20 05/12/23 18:03 2 05/12/23 17:00 05/12/23 16:00 1 05/12/23 15:00 2 05/12/23 14:24 05/12/23 14:24 05/12/23 12:00 1 05/12/23 13:00 2 05/12/23 11:00 2 05/12/23 09:00 2 05/12/23 09:30 05/12/23 09:30 Intake and Output 05/12/23 05/13/23 05/13/23 19:59 03:59 11:59 Intake Total 510 / 510 60 / 570 470 / 1040 Output Total 0 / 0 0 / 0 0 / 0 Balance 510 / 510 60 / 570 470 / 1040 Intake: Intake, Oral Amount 510 / 510 60 / 570 470 / 1040 Output: Output, Urine Amount 0 / 0 0 / 0 0 / 0 Other: Number of Unmeasured Voids 1 1 1 Number of Bowel Movements 1 Weight 151 lb 15.998 oz Patient Weight 05/13/23 11:59 Weight 151 lb 15.998 oz I & O for Labs for Last 24 Hours: Intake & Output 05/10/23 05/11/23 05/12/23 05/13/23 11:59 11:59 11:59 11:59 Intake Total 750 / 750 3240 / 3240 2300 / 2300 1040 / 1040 Output Total 0 / 0 0 / 0 1 / 1 0 / 0 Balance 750 / 750 3240 / 3240 2299 / 2299 1040 / 1040 Weight 151 lb 14.4 oz 152 lb 152 lb 151 lb 15.998 oz Microbiology Reports for the Last 24 Hours: Microbiology 05/09/23 16:15 Sputum - Expectorated Sputum Gram Stain - Final Constitutional: Present no acute distress Comment:: Sitting up in the bed and appears comfortable Respiratory: Present decreased breath sounds (Bilateral bases) and crackles (Scattered fine throughout) Cardiac: Present Reg Rate and Rhythm GI: Present soft and normal bowel sounds; Absent distention or tenderness Extremities: Present full ROM; Absent tenderness, edema or calf tenderness Neuro: Present alert and oriented x 3 Assessment and Plan *Assessment and plan (1) COVID-19: Status: Acute Category: Medical Code(s): U07.1 - COVID-19 (2) Hypoxic respiratory failure: Status: Acute Category: Medical Code(s): J96.91 - Respiratory failure, unspecified with hypoxia (3) Hypokalemia: Status: Acute Category: Medical Code(s): E87.6 - Hypokalemia Plan Continue to wean from oxygen. Documented O2 sats are 90 or greater and show O2 on 1 L/min per nasal cannula. Dr. Turcios entry - Saw patient, agree with above note. OK to discharge home today with oxygen, f/u i n office next week.
[2023-05-13] MEDS: DEXAMETHASONE 4MG/ML 1ML VIAL 6 MG IV (09:15)
[2023-05-13] MEDS: FAMOTIDINE 20MG TABLET 20 MG PO (09:15)
[2023-05-13] MEDS: AZITHROMYCIN 250MG TABLET 500 MG PO (09:15)
[2023-05-13] MEDS: ASCORBIC ACID 500MG TAB 500 MG PO (09:15)
[2023-05-13] MEDS: POTASSIUM CHLORIDE 20MEQ TAB 20 MEQ PO (09:16)
[2023-05-13] MEDS: ZINC SULFATE 220MG CAPSULE 220 MG PO (09:16)
--- NOTE | 2023-05-13 09:22 | CARE MANAGER ---
Patient has a room air saturation of 89% on room air, while ambulating O2 saturation drops to 86%. Patient rebounds to 94% with 2L supplemental O2.
[2023-05-13 10:02] VITALS: PULSE 71; PULSE 72
--- NOTE | 2023-05-15 15:05 | CARE MANAGER ---
CM called and spoke with patient regarding recent discharge. Patient aware of scheduled f/u appt. No concerns voiced at time of call.
--- NOTE | 2023-05-18 23:00 | EXP.DC.SUM ---
General Admission date:: 05/09/23 Discharge date: 05/13/23 HPI HPI HPI: Ms. Hayward is a 63-year-old female who was seen in the office last week and tested positive for COVID-19. She was given Paxlovid but did not take the medication due to fear of side effects. She states this is the second time she has had COVID. She has had issues with her lungs since the first episode of COVID. Her oxygen has been lower and she has had periods of wheezing and shortness of breath. During this episode of COVID, her oxygen has been in the 80s at home and drops when she walks. She is extremely short of breath and has been wheezing. She has not had any imaging with either COVID episode. She has also not had any inhalers or neb treatments. Her oxygen was 84% on room air in the office and she was started on 2 L of oxygen and directly admitted. Hospital Course Hospital Course Hospital Course: The patient was placed on 2 L nasal cannula in the office of [facility] and was directly admitted. COVID protocols were ordered. Potassium was low and was replaced. She did begin feeling better but continued with shortness of breath. Attempts were made to wean her supplemental oxygen and her oxygen sats dropped. She was placed back on 2 L. She was able to ambulate without problems but became short of breath with any activity. The patient was unable to be completely weaned from oxygen and was stable to be discharged home with home oxygen. She will follow-up in the office. Exam Data for Last 24 hours Vital signs and Labs for Last 24 Hours: Temp Pulse Resp BP Pulse Ox O2 Del Method O2 Flow Rate 98.2 F 71 17 129/72 92 L Nasal Cannula 1 05/13/23 07:59 05/13/23 10:02 05/13/23 07:59 05/13/23 07:59 05/13/23 07:59 05/13/23 07:59 05/13/23 07:59 FiO2 28 05/11/23 19:35 Microbiology Reports for the Last 24 Hours: Microbiology 05/09/23 16:52 Blood Blood Culture - Final 05/09/23 17:06 Blood Blood Culture - Final Narrative: Constitutional Constitutional: mild distress *Routine HEENT Exam Head: Present normocephalic and atraumatic Eye: Present EOMI and PERRL ENT: Present mucous membranes dry *Routine Neck Exam Neck: Present supple and full ROM *Routine Respiratory Exam Respiratory: Present wheezes; Absent rales *Routine Cardiovascular Exam Cardiovascular: Present RRR and tachycardia *Routine Abdominal Exam Abdominal: Present soft and normoactive bowel sounds; Absent tenderness *Routine Rectal Exam Rectal:: deferred *Routine Genitalia Exam Genitalia:: deferred *Routine Extremities Exam Extremities: Absent cyanosis, clubbing or edema *Routine Skin Exam Skin: Present intact; Absent erythema *Routine Neurological Exam Neurological: Present alert and oriented X3 DS: Diagnosis Discharge Diagnosis (1) COVID-19: Status: Acute Code(s): U07.1 - COVID-19 (2) Hypoxic respiratory failure: Status: Acute Code(s): J96.91 - Respiratory failure, unspecified with hypoxia (3) Hypokalemia: Status: Acute Code(s): E87.6 - Hypokalemia Meds Home Medications and Allergies Home Medications Medication Instructions Recorded Confirmed Type No Known Home Medications 05/10/23 05/10/23 History New Prescriptions to Start Prescriptions: Allergies Allergy/AdvReac Type Severity Reaction Status Date / Time No Known Allergies Allergy Verified 12/22/21 09:45 Discharge Plan Disposition Patient Disposition: Home, Self-Care Condition: Fair Discharge Order Discharge Orders: Discharge Order (Routine); Ordered 05/13/23 Ordered By: Varun Turcios Follow up Plan Follow up with: Varun Turcios MD [Primary Care Provider] - 05/21/23 11:00 am Prescriptions/Medication Reconciliation: No Action No Known Home Medications Problem Reconciliation Problems Reviewed?: Yes Patient Discharge Instructions ACTIVITY: Continue current activity DIET: continue same diet Additional Instructions: Home Oxygen 2 L/min/NC Patient Instructions: Respiratory Failure, DI for COVID-19 (Suspected or Confirmed ), How to Care for Someone with COVID-19 Providers Primary Care Provider: Varun Turcios Admit Provider: Varun Turcios Attending Provider: Varun Turcios
== END 2023-05-13 10:30 | disposition home or self-care (01) | DRG 177 ==
PROVIDERS: Physician Assistant; Admitting Provider Family Medicine; PCP Family Medicine; Visit Provider Family Medicine
DX: U07.1 COVID-19 (principal); J96.91 Respiratory failure, unspecified with hypoxia; E87.6 Hypokalemia
CPT/HCPCS: 36415; 71045; 80048; 80053; 83605; 83615; 85007; 85025; 85378; 86140; 87040; 87070; 87205; 87636; 93005; 94640; 94761

== ENCOUNTER 2023-05-29 09:48 | Outpatient (CLI) | payer MEDICARE, SELFPAY | END 2023-05-29 23:59 | PROVIDERS: PCP Family Medicine; Visit Provider Family Medicine | DX: R06.02 Shortness of breath (principal) | CPT/HCPCS: 94060 ==

== ENCOUNTER 2023-06-13 14:46 | Outpatient (CLI) | payer MEDICARE, SELFPAY ==
--- NOTE | 2023-06-13 14:51 | CT_ITS ---
FINAL REPORT TECHNIQUE: Thin section axial images were obtained from the lung apices to the upper abdomen by computed tomography. Reformatted images were obtained and reviewed. This study was performed with techniques to keep radiation doses al low as reasonably achievable (ALARA). Individualized dose reduction techniques using automated exposure control or adjustment of mA and/or kV according to the patient's size were employed. CLINICAL HISTORY: SCREENING FOR LUNG CANCER CURRENT SMOKER 1PPD X 50 YEARS COMPARISON: None FINDINGS: CHEST CT LOW DOSE 63-year-old female, current smoker, [id number] history. CTDI vol (mGy): 2.9 DLP (mGy-cm): 102.12 There is no axillary adenopathy. There is no mediastinal or hilar mass or adenopathy. The heart is normal in size. There is a 10 mm soft tissue focus contiguous with the lateral border of the aortic arch, and a saccular aneurysm is not excluded. There is no pericardial or pleural effusion. There is mild emphysema and mild pulmonary scarring. Lung window images demonstrate several nodules. In the posterior left upper lobe there is a 5 mm nodule seen on image #15, with several small adjacent nodules in that region. There is a posterior right upper lobe nodule measuring 5 mm, also seen on image #15. There is an anterior right lower lobe 6 mm nodule, seen on image #52. There is a posterior left upper lobe 5 mm nodule, seen on image #25. Limited images of the upper abdomen reveal a left adrenal 21 mm nodular mass, favor an adenoma. IMPRESSION: Lung-RADS category 3S, with the S designation for the soft tissue focus lateral border of the aortic arch, and the left adrenal mass. Recommend CT angiography of the chest to evaluate the aortic arch abnormality, as a saccular aneurysm is not excluded. Recommend 6 month follow up low dose chest CT to reevaluate nodules. Reviewed, Interpreted and Dictated by Ha Yoder III, MD Transcribed by Juana Gandhi Authenticated and [facility]
== END 2023-06-13 23:59 ==
LOC: RAD 14:46
PROVIDERS: PCP Family Medicine; Visit Provider Family Medicine
DX: Z87.891 Personal history of nicotine dependence (principal); Z12.2 Encounter for screening for malignant neoplasm of respiratory organs
CPT/HCPCS: 71271

== ENCOUNTER 2023-07-04 09:07 | Outpatient (CLI) | payer MEDICARE, SELFPAY ==
[2023-07-04 10:46] LABS: Blood Urea Nitrogen 13 mg/dl (7-17); Estimated Glomerular Filt Rate 100 ml/min (>60); GFR (African American) 121 ML/MIN (>60)
== END 2023-07-04 23:59 ==
LOC: LAB 09:08
PROVIDERS: PCP Family Medicine; Visit Provider Family Medicine
DX: Z01.812 Encounter for preprocedural laboratory examination (principal)
CPT/HCPCS: 36415; 82565; 84520

== ENCOUNTER 2023-07-07 11:05 | Outpatient (CLI) | payer MEDICARE, SELFPAY ==
--- NOTE | 2023-07-07 11:13 | CT_ITS ---
FINAL REPORT CLINICAL HISTORY: ABNORMAL THORACIC AORTA; ATTN:AORTIC ARCH COMPARISON: 06/13/2023 FINDINGS: Thin section axial CT images of the chest were obtained with contrast. 3D reformatted images were also obtained. This study was performed with techniques to keep radiation doses as low as reasonably achievable (ALARA). Individualized dose reduction techniques using automated exposure control or adjustment of mA and/or kV according to the patient's size were employed. There is no evidence of pulmonary embolism. There is ectasia of the ascending aorta, measuring 36 mm in diameter. The saccular aneurysm seen on the prior exam in the lateral aspect of the thoracic aortic arch is mostly thrombosed, and once again measures 11 mm in greatest diameter. Moderate changes of emphysema are once again identified, along with mild scarring. There is no evidence of mediastinal or hilar mass or adenopathy. There are multiple pulmonary nodules, stable since the prior CT examination. No localized inflammatory process is seen within the lungs. Limited images of the upper abdomen reveal a 23 mm left adrenal mass, not having an appearance typical of an adenoma, more likely an atypical adenoma or possibly a metastatic focus. There is mild nodular enlargement of the right adrenal gland, which is nonspecific. IMPRESSION: No evidence of pulmonary embolism. Saccular aneurysm lateral thoracic aortic arch, mostly thrombosed. It once again measures 11 mm in size. 23 mm left adrenal mass, not typical of an adenoma but may represent an atypical adenoma although metastasis cannot be excluded. There is mild nodular enlargement of the right adrenal gland as well, nonspecific. Recommend a 3-month follow-up CT of the chest for further evaluation. Reviewed, Interpreted and Dictated by Ha Yoder III, MD Transcribed by Juana Gandhi Authenticated and [facility]
[2023-07-07] MEDS: 0.9 % SODIUM CHLORIDE 50 ML VIAL IV (11:36)
[2023-07-07] MEDS: IOPAMIDOL-370 (76%);100ML BOTTLE 100 ML IV (11:36)
[2023-07-07] MEDS: SODIUM CHLORIDE 0.9% 10ML SYR (RAD ONLY) 10 ML IV (11:36)
== END 2023-07-07 23:59 ==
LOC: RAD 11:06
PROVIDERS: PCP Family Medicine; Visit Provider Family Medicine
DX: Q25.40 Congenital malformation of aorta unspecified (principal)
CPT/HCPCS: 71275; Q9967

== ENCOUNTER 2024-02-02 07:35 | Outpatient (CLI) | payer MEDICARE, SELFPAY ==
[2024-02-02 08:40] VITALS: PULSE 59; PULSE 62
[2024-02-02] MEDS: ALBUTEROL 0.083% 2.5 MG/3 ML NEB IH (08:40)
--- NOTE | 2024-02-02 09:25 | CT_ITS ---
FINAL REPORT TECHNIQUE: Axial images were obtained from the lung apex to the mid abdomen by computed tomography. Coronal reformatted images were obtained. This study was performed with techniques to keep radiation doses as low as reasonably achievable, (ALARA). Individualized dose reduction techniques using automated exposure control or adjustment of mA and/or kV according to the patient''s size were employed. CLINICAL HISTORY: follow up for nodule COMPARISON: 07/07/2023 FINDINGS: No mediastinal mass or adenopathy is identified. There is ectasia of the ascending aorta, measuring 31 mm in diameter. The presumed saccular aneurysm on the left side of the aortic arch is once again identified, and measures 11 mm, stable in size. No axillary mass or adenopathy is seen.There is no pericardial or pleural effusion. Moderate changes of emphysema are present, as well as mild scarring. There is an anterior right lower lobe nodule, 6 mm in size, best seen on image #54 of series 2, stable when compared to the prior exam. There are several other smaller nodules seen, also stable. There is a small cluster of nodules in the left upper lobe, stable. The chest wall is intact. A left adrenal nodule is once again identified, 22 mm in size, stable, consistent with an adenoma. 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 Ectasia of the ascending aorta is also stable. Multiple nodules are present, the largest in the anterior right lower lobe, 6 mm, stable. Recommend 12-month follow-up chest CT for further evaluation. Reviewed, Interpreted and Dictated by Ha Yoder III, MD Transcribed by Juana Gandhi Authenticated and [facility]
== END 2024-02-02 23:59 | disposition home or self-care (01) ==
LOC: RT 07:36
PROVIDERS: PCP Family Medicine; Visit Provider Internal Medicine Pulmonary Disease
DX: R91.8 Other nonspecific abnormal finding of lung field (principal); R06.09 Other forms of dyspnea
CPT/HCPCS: 71250; 94060; 94618; 94640; 94726; 94729; J7613

== ENCOUNTER → 2024-06-14 15:45 | Outpatient (CLI) | payer MEDICARE, SELFPAY | LOC: SL 15:46 | PROVIDERS: PCP Family Medicine; Visit Provider Internal Medicine Pulmonary Disease | DX: J44.9 Chronic obstructive pulmonary disease, unspecified (principal) | CPT/HCPCS: 94762 ==

== ENCOUNTER 2024-09-25 11:22 | Outpatient (CLI) | payer MEDICARE, SELFPAY ==
--- OUTSIDE RECORDS SUMMARY | 2024-03-19 06:00 | XMS_ITS ---
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 Name Role Phone Jorge Seymour Primary Care Provider Varun Turcios Unavailable [phone] Allergies No Known Allergies Results Component Value Reference Range Notes CBC Venipuncture (in house) Reviewed date:2024 11:38:48 AM Interpretation: Performing Lab: Notes/Report: wbc 9.4 3.5 - 10 lymph 21.9% 15 - 50 mid 5.7% 2 - 15 gran 72.4% 35 - 80 rbc 4.91 3.5 - 5.5 hgb 13.7 11.5 - 16.5 hct 42.3 35 - 55 mcv 86.2 75 - 100 mch 28.0 25 - 35 mchc 32.4 31 - 38 platlet 193 100 - 400 P-Comprehensive Metabolic Pa migdalia (CMP) Reviewed date:03/22/2024 04:16:52 PM Interpretation:glu 102 Normal Performing Lab: Notes/Report: Test performed by [facility], [facility] , [address], [place] [address] Antonio Washburn MD, Supervisor [employer] CLIA: [id number] Sodium 139 135-145 mmol/L Potassium 4.5 3.5-5.3 mmol/L Chloride 101 97-108 mmol/L CO2 27 22-32 mmol/L Glucose 102 65-99 mg/dL BUN 14 8-23 mg/dL Creatinine 0.69 0.50-1.00 mg/dL Calcium 9.4 8.6-10.4 mg/dL eGFR by Creatinine 96 >59 mL/min/1.73m2 Protein 6.6 6.0-8.3 g/dL Albumin 4.1 3.5-5.3 g/dL Alkaline Phosphatase 118 35-121 IU/L ALT (SGPT) 21 <5-47 IU/L AST (SGOT) 20 <5-40 IU/L Bilirubin, Total 0.8 <0.2-1.2 mg/dL A/G Ratio 1.6 1.1-2.5 P-Lipid Panel Reviewed date:03/22/2024 04:16:52 PM Interpretation:Normal Performing Lab: Notes/Report: Test performed by [facility], [address] , [place] [address] Antonio Washburn MD, Supervisor [employer] CLIA: [id number] Cholesterol 183 <200 mg/dL Triglycerides 97 <150 mg/dL HDL Cholesterol 60 >39 mg/dL Cholesterol / HDL Ratio 3.05 0.00-4.44 Ratio Non-HDL Cholesterol 123 <130 mg/dL LDL Cholesterol (Calculation) 104 <130 mg/dL LDL Cholesterol Levels* Less than 100 mg/dL Optimal 100 to 129 mg/dL Near Optimal/ Above Optimal 130 to 159 mg/dL Borderline High 160 to 189 mg/dL High 190 mg/dL and above Very High * Categories as recommended by the 2004 ATPIII guidelines LDL/HDL Ratio 1.7 <3.3 Ratio LDL Cholesterol Patient History Test Date: 2024 LDL Results: 104 Units: mg/dL % Change: - B-Type Natriuretic Peptide Reviewed date:03/22/2024 04:16:52 PM Interpretation:Normal Performing Lab: Notes/Report: Test performed by [facility] [address] [place] [address] , [address], [place] [address] Antonio Washburn MD, Supervisor [employer] CLIA: [id number] B-Type Natriuretic Peptide 76.0 <2.0-100.0 pg/ mL REASON FOR VISIT 4 month fasting check Medications Medication SIG (Take, Route, Frequency, Duration) Notes Start Date End Date Status dexAMETHasone 2 MG 1 tablet Orally ever y 12 hrs; Duration: 5 day(s) 2024 Active Stiolto Respimat 2.5-2.5 MCG/ACT 2 puffs Inhalation Once a day Active Omeprazole 40 MG 1 capsule 30 minutes before morning meal Orally Once a day; Duration: 90 days Active Furosemide 20 MG TAKE 1 TABLET BY DAILY; Duration: 30 Active Albuterol Sulfate HFA 108 (90 Base) MCG/ACT 1 puff as needed Inhalation every 4 hrs Active Portable System and conserving device - 3 Liters per minute continuos As needed 03/09/2024 Active Cefdinir 300 MG 1 cap(s) Orally Two times a day; Duration: 7 days 2024 Active Potassium Chloride ER 10 MEQ TAKE 1 TABL ET BY MOUTH EVERY DAY WITH FOOD; Duration: 30 Active Social History Tobacco Use: Social History Observation Description Date Smoking Status WARNING: Information temporarily unavailable CURRENT TOBACCO USE: Question Answer Notes Are you a: 1/2 ppd, since a ge 13 Problems Problem Type SNOMED Code ICD Code Onset Dates Problem Status W/U Status Risk Notes Problem Chronic respiratory failure (11629560) Chronic respiratory failure, unspecified whether with hypoxia or hypercapnia (J96.10) Active confirmed Vital Signs Blood pressure systolic 130 mm Hg 03/19/20 24 Blood pressure diastolic 80 mm Hg 024 Heart Rate 111 /min 2024 Height 64 in 2024 Weight 000 lbs 2024 Encounters Encounter Location Date Provider Diagnosis [facility] [address] [facility] [address] [place] [id number] 2024 Varun Turcios Acute cough R05.1 ; COPD (chronic obstructive pulmonary disease) J44.9 ; SOB (shortness of breath) R06.02 ; Chronic respiratory failure, unspecified whether with hypoxia or hypercapnia J96.10 ; Screening, lipid Z13.220 and Diabetes mellitus screening Z13.1 Assessments Encounter Date Diagnosis (ICD Code) Assessment Notes Treatment Notes Treatment Clinical Notes Section Notes 2024 Acute cough (ICD-10 - R05.1) 2024 COPD (chronic obstructive pulmonary disease) (ICD-10 - J44.9) 2024 SOB (shortness of breath) (ICD-10 - R06.02) 2024 Chronic respiratory failure, unspecified whether with hypoxia or hypercapnia (ICD-10 - J96.10) 2024 Screening, lipid (ICD-10 - Z13.220) 2024 Diabetes mellitus screening (ICD-10 - Z13.1) Plan Of Treatment Medication Medication Name Sig Start Date Stop Date Notes dexAMETHasone 2 MG 1 tablet Orally ever y 12 hrs; Duration: 5 day(s) 2024 Cefdinir 300 MG 1 cap(s) Orally Two times a day; Duration: 7 days 2024 Pending Test Test Name Order Date P-BNP (Brain Natriuretic Peptide) 2023 Next Appt Details Follow Up: 6 Months, Reason: Provider Name:Varun Schumacher ry, 03/18/2025 10:15:00 AM, [address] [facility], [address], [place], [id number], Progress Notes * Essie HODGEOB:1959 (64 yo F)Acc No.[id number]:2024 Progress Notes Patient: Gale STRATTON Essie Escobar Provider: Anaya Turcios M.D. :1960 A ge:64 Y S ex:Female Date:2024 Address:[address] [place] [address] [place], [id number] Pcp:Jorge Seymour Subjective: * Chief Complaints: * 1 . 4 month fasting check. * HPI: H PI: 64 year old female presents with c/o Patient is here today for?Pt here for check-up, pt states she is fasting today. E NT/respiratory: c/o COPD P t states she has been doing a lot of coughing and really struggling to breathe the last couple days . Pt states she was started on Breztri inhaler and it did help for the first couple days but is no longer working. * ROS: D ERMATOLOGY: no R maryam. n o H arsh. G ASTROENTEROLOGY: no N ausea. n o V omiting. U ROLOGY: no D ifficulty urinating. n o B lood in urine. 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 * Surgical History: T alex Extracted 2002. * Hospitalization/Major Diagno stic Procedure: D enies Past Hospitalization. * Family History: F ather: 90 yrs, diagnosed with Cancer. M other: 83 yrs, HLP, AAA, diagnosed with Heart Disease. C hildren: alive. S iblings: diagnosed with Cancer. 3 sister(s) . 1 son(s) - healthy. . * Social History: C URRENT TOBACCO USE: Yes A re you a: 1/2 ppd, since age 13. C affeine: yes, frequency: Mt Dew, Coffee, Tea daily. Exercise: no. Home smoke detector use: yes. 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 Alcohol: No. * Medications: T aking Albuterol Sulfate HFA 108 (90 Base) MCG/ACT Aerosol Solution 1 puff as needed Inhalation every 4 hrs , Taking Stiolto Respimat 2.5-2.5 MCG/ACT Aerosol Solution 2 puffs Inhalation Once a day , Taking Omeprazole 40 MG Capsule Delayed Release 1 capsule 30 minutes before morning meal Orally Once a day , Taking Furosemide 20 MG Tablet TAKE 1 TABLET BY MOUTH DAILY , Taking Potassium Chloride ER 10 MEQ Tablet Extended Release TAKE 1 TABLET BY MOUTH EVERY DAY WITH FOOD , Taking Portable System and conserving device - - 3 Liters per minute continuos As needed , Medication List reviewed and reconciled with the patient * Allergies: N .K.D.A. Objective: * Vitals: W t:000, Temp:97.8, BP:130/80, HR:111, O2 Sat:90% on 1L O2, Nurse:orin, Ht: 64. * Examination: E NT/Respiratory: General Appearance: N AD, supplemental oxygen in use. E yes: P ERRLA, sclera clear. O ral cavity : erythema without exudate on pharynx. N alexus : n o cervical lymphadenopathy. H eart : R RR, normal S1 S2. L ungs: g ood air movement, few wheezes. Assessment: * Assessment: 1. A cute cough - R05.1 (Primary) 2 . C OPD (chronic obstructive pulmonary disease) - J44.9 3 . S OB (shortness of breath) - R06.02 4 .?Chronic respiratory failure, unspecified whether with hypoxia or hypercapnia - J96.10 5. S creening, lipid - Z13.220 6 . D iabetes mellitus screening - Z13.1? Plan: * Treatment: Value Reference Range w bc 9.4 3.5 - 10 * l ymph 21.9% 15 - 50 * m id 5.7% 2 - 15 * g ran 72.4% 35 - 80 * r bc 4.91 3.5 - 5.5 * h gb 13.7 11.5 - 16.5 * h ct 42.3 35 - 55 * m cv 86.2 75 - 100 * m ch 28.0 25 - 35 * m chc 32.4 31 - 38 * p latlet 193 100 - 400 * Nataliya Fournier 2024 11:07: 59 AM > , Provider reviewed results while patient in office. 2.?SOB (shortness of breath)?LAB: P-BNP (Brain Natriuretic Peptide) ?LAB: P-Comprehensive Metabolic Panel (CMP) (Collection Date & Time - 2024 09:32 AM)?glu 102 Normal* Value Reference Range A /G Ratio 1.6 1.1-2.5 - * A lbumin 4.1 3.5-5.3 - g/dL * A lkaline Phosphatase 118 35-121 - IU/L * A LT (SGPT) 21 <5-47 - IU/L * A ST (SGOT) 20 <5-40 - IU/L * B ilirubin, Total 0.8 <0.2-1.2 - mg/dL * B UN 14 8-23 - mg/dL * C alcium 9.4 8.6-10.4 - mg/dL * C hloride 101 97-108 - mmol/L * C O2 27 22-32 - mmol/L * C reatinine 0.69 0.50-1.00 - mg/dL * G lucose 102 H 65-99 - mg/dL * P otassium 4.5 3.5-5.3 - mmol/L * S odium 139 135-145 - mmol/L * P rotein 6.6 6.0-8.3 - g/dL * e GFR by Creatinine 96 >59 - mL/min/1.73m2 * Cora Trujillo 03/22/2024 1:5 5:59 PM > sent to [facility] to inform of normal results [facility] 03/22/2024 4:16:32 PM > Pt informed 3.?Screening, lipid?LAB: P-Lipid Panel (Collection Date & Time - 2024 09:32 AM)?Normal* Value Reference Range C holesterol / HDL Ratio 3.05 0.00-4.44 - Ratio * C holesterol 183 <200 - mg/dL * H DL Cholesterol 60 >39 - mg/dL * L DL Cholesterol (Calculation) 104 <130 - mg/d L * L DL/HDL Ratio 1.7 <3.3 - Ratio * N on-HDL Cholesterol 123 <130 - mg/dL * T riglycerides 97 <150 - mg/dL * Cora Trujillo 03/22/2024 1:5 5:59 PM > sent to [facility] to inform of normal results [facility] 03/22/2024 4:16:32 PM > Pt informed 4.?Diabetes mellitus screening?LAB: P-Comprehensive Metabolic Panel (CMP) (Collection Date & Time - 2024 09:32 AM)?glu 102 Normal* Value Reference Range A /G Ratio 1.6 1.1-2.5 - * A lbumin 4.1 3.5-5.3 - g/dL * A lkaline Phosphatase 118 35-121 - IU/L * A LT (SGPT) 21 <5-47 - IU/L * A ST (SGOT) 20 <5-40 - IU/L * B ilirubin, Total 0.8 <0.2-1.2 - mg/dL * B UN 14 8-23 - mg/dL * C alcium 9.4 8.6-10.4 - mg/dL * C hloride 101 97-108 - mmol/L * C O2 27 22-32 - mmol/L * C reatinine 0.69 0.50-1.00 - mg/dL * G lucose 102 H 65-99 - mg/dL * P otassium 4.5 3.5-5.3 - mmol/L * S odium 139 135-145 - mmol/L * P rotein 6.6 6.0-8.3 - g/dL * e GFR by Creatinine 96 >59 - mL/min/1.73m2 * Cora Trujillo 03/22/2024 1:5 5:59 PM > sent to Nataliya to inform of normal results Nataliya Fournier 03/22/2024 4:16:32 PM > Pt informed * Labs: * L ab: B-Type Natriuretic Peptide (Collection Date & Time - 2024 09:32 AM) N ormal Value Reference Range B -Type Natriuretic Peptide 76.0 <2.0-100.0 - p g/mL * [facility], IT support 03/20/2024 08:00:08 : This order was created by the Interface. Cora Trujillo 03/22/2024 1:55:59 PM > sent to Nataliya to inform of normal results Nataliya Fournier 03/22/2024 4:16:32 PM > Pt informed * Procedure Codes: G 2211 Complex e/[place], [address] [place], [address] CBC WITH AUTO DIFF * Follow Up: 6 Months * Images: Billing Information: * Visit Code: 60087 Office Visit, Est Pt., Level 4. * Procedure Codes: G2211 Complex e/[place]. [address] [place]. [address] CBC WITH AUTO DIFF. * Electronic signature of Sharyn Turcios MD on 09/27/2024 at 11:24 AM EDT Sign off status: Pending * Provider: Anaya Turcios M.D. Date: 1 05/20/2023 Generated for Printi ng/Faxing/eTransmitting on: 0 09/27/2024 11:24 AM EDT History and Physical Notes * HPI (History of Present Illness) Category Sub-Category Detail Notes Category Not es ENT/respiratory COPD Pt states she [place] s been doing a lot of coughing and really struggling to breathe the last couple days . Pt states she was started on Breztri inhaler and it did help for the first couple days but is no longer working HPI Patient is here today for Pt her e for check-up, pt states she is fasting today Examination Category Sub-Category Detail Notes Category Not es ENT/Respiratory Oral cavity : erythema without exudate on pharynx Neck : no cervical lymphade nopathy Heart : RRR, normal S1 S2 Lungs: good air movement, f ew wheezes General Appearance: NAD, supplemental ox ygen in use Eyes: PERRLA, sclera clear
--- OUTSIDE RECORDS SUMMARY | 2024-09-17 05:30 | XMS_ITS ---
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 Name Role Phone Jorge Seymour Primary Care Provider Varun Turcios Unavailable [phone] Allergies No Known Allergies Results Component Value Reference Range Notes CBC Venipuncture (in house) Reviewed date:09/20/2024 03:14:09 PM Interpretation:Normal Performing Lab: Notes/Report: Normal wbc 10.1 3.5 - 10 lymph 16.4% 15 - 50 mid 5.3% 2 - 15 gran 78.3% 35 - 80 rbc 5.13 3.5 - 5.5 hgb 14.5 11.5 - 16.5 hct 45.0 35 - 55 mcv 87.6 75 - 100 mch 28.3 25 - 35 mchc 32.3 31 - 38 platlet 371 100 - 400 P-Vitamin B12 Reviewed date:09/20/2024 03:14:09 PM Interpretation:Normal Performing Lab: Notes/Report: Test performed by [facility] [address], [place] [address] Antonio Washburn MD, Admissions Officer CLIA: [id number] Vitamin B12 258 551-8641 pg/mL P-Comprehensive Metabolic Pa migdalia (CMP) Reviewed date:09/20/2024 03:14:09 PM Interpretation:Normal Performing Lab: Notes/Report: Test performed by [facility] [address] [place], [place] [address] [place] , [place] [address] Antonio Washburn MD, Admissions Officer CLIA: [id number] Sodium 139 135-145 mmol/L Potassium 5.1 3.5-5.3 mmol/L Chloride 99 97-108 mmol/L CO2 30 22-32 mmol/L Glucose 105 65-99 mg/dL BUN 12 8-23 mg/dL Creatinine 0.75 0.50-1.00 mg/dL Calcium 9.5 8.6-10.4 mg/dL eGFR by Creatinine 87 >59 mL/min/1.73m2 Protein 6.8 6.0-8.3 g/dL Albumin 4.1 3.5-5.3 g/dL Alkaline Phosphatase 103 35-121 IU/L ALT (SGPT) 25 <5-47 IU/L AST (SGOT) 25 <5-40 IU/L Bilirubin, Total 0.5 <0.2-1.2 mg/dL A/G Ratio 1.5 1.1-2.5 P-TSH reflex to FT4 Reviewed date:09/20/2024 03:14:09 PM Interpretation:Normal Performing Lab: Notes/Report: Test performed by [facility] [address] [place] [address] [place] [address] Antonio Washburn MD, Admissions Officer CLIA: [id number] TSH reflex to FT4 3.58 0.43-5.25 mU/L P-Vitamin D 25-Hydroxy Reviewed date:09/20/2024 03:14:09 PM Interpretation:16.5 Performing Lab: Notes/Report: Test performed by [facility] [address] [place] [address] , [place] [address] Antonio Washburn MD, Admissions Officer CLIA: [id number] Vitamin D 25-Hydroxy 16.5 30.0-100.0 ng/mL Interpretation of Vitamin D 25 [place]: < 20 ng/mL - Deficiency 20 - 29 ng/mL - Insufficiency 30 - 100 ng/mL - Sufficiency > 100 ng/mL - Super-therapeutic- toxicity may occur above this level. Clinical correlation required. REASON FOR VISIT 6 months Medications Medication SIG (Take, Route, Frequency, Duration) Notes Start Date End Date Status Potassium Chloride ER 10 MEQ TAKE 1 TABLET BY MOUTH EVERY DAY WITH FOOD; Duration: 30 Active Furosemide 20 MG TAKE 1 TABLET BY PARISA TH DAILY; Duration: 30 Active Portable System and conserving device - 3 Liters per minute continuos As needed 03/09/2024 Active Albuterol Sulfate HFA 108 (90 Base) MCG/ACT 1 puff as needed Inhalation every 4 hrs Active Breztri Aerosphere 160-9-4.8 MCG/ACT 2 puffs Inhalation Twice a day Active Omeprazole 40 MG 1 capsule 30 minutes before morning meal Orally Once a day; Duration: 90 days Active Social History Tobacco Use: Social History Observation Description Date Smoking Status WARNING: Information temporarily unavailable CURRENT TOBACCO USE: Question Answer Notes Are you a: 1/2 ppd, since a ge 13 Problems Problem Type SNOMED Code ICD Code Onset Dates Problem Status W/U Status Risk Notes Problem Gastroesophageal reflux disease (611585218) GERD (gastroesophag eal reflux disease) (K21.9) Active confirmed Problem Chronic respiratory failure (09442439) Chronic respiratory failure with hypoxia (J96.11) Active confirmed Vital Signs Blood pressure systolic 132 mm Hg 09/18/19 25 Blood pressure diastolic 76 mm Hg 025 Heart Rate 92 /min 09/17/2024 Height 64 in 09/17/2024 Weight 000 lbs 09/17/2024 Encounters Encounter Location Date Provider Diagnosis [facility] [facility] [address] [id number] 09/17/2024 Varun Turcios GERD (gastroesophage al reflux disease) K21.9 ; Fatigue R53.83 ; COPD (chronic obstructive pulmonary disease) J44.9 ; lobsterman use of drug Z79.899 ; Chronic respiratory failure, unspecified whether with hypoxia or hypercapnia J96.10 and Chronic respiratory failure with hypoxia J96.11 Assessments Encounter Date Diagnosis (ICD Code) Assessment Notes Treatment Notes Treatment Clinical Notes Section Notes 09/17/2024 GERD (gastroesophagea l reflux disease) (ICD-10 - K21.9) 09/17/2024 Fatigue (ICD-10 - R53.83) 09/17/2024 COPD (chronic obstructive pulmonary disease) (ICD-10 - J44.9) 09/17/2024 assisted use of drug (ICD-10 - Z79.899) 09/17/2024 Chronic respiratory failure, unspecified whether with hypoxia or hypercapnia (ICD-10 - J96.10) 09/17/2024 Chronic respiratory failure with hypoxia (ICD-10 - J96.11) Plan Of Treatment Medication Medication Name Sig Start Date Stop Date Notes Omeprazole 40 MG 1 capsule 30 minutes before morning meal Orally Once a day; Duration: 90 days Next Appt Details Follow Up: 6 Months, Reason: Provider Name:Varun Schumacher ry, 03/18/2025 10:15:00 AM, [address], [address], [place], [place], [id number], Progress Notes * Essie HODGEpeytoneDOB:1959 (64 yo F)Acc No.[id number]:09/17/2024 Progress Notes Patient: Essie KNAPP Provider: Anaya Turcios M.D. :1960 A ge:64 Y S ex:Female Date:09/17/2024 Address:[address] [place] [address] [address] [place] [id number] Pcp:Jorge Seymour Subjective: * Chief Complaints: * 1 . 6 months. * HPI: E NT/respiratory: 64 year old female presents with c/o COPD P t here to f/u. Pt states inhaler was changed from Stiolto to Breztri by Dr. High in May. Pt states she has better results with Breztri. * ROS: D ERMATOLOGY: no R maryam. n o H arsh. G ASTROENTEROLOGY: no N ausea. n o V omiting. U ROLOGY: no D ifficulty urinating. n o B lood in urine. * Medical History: T obacco addiction, 50 pack year smoking history as of 2023, [employer] - Dr. Lobo, COPD, Esophageal reflux. * Surgical History: T ooth Extracted 2002. * Hospitalization/Major Diagno stic Procedure: [...] yes. 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 Alcohol: No. * Medications: T krystal Dasilvaztri Aerosphere 160-9-4.8 MCG/ACT Aerosol 2 puffs Inhalation Twice a day , Taking Albuterol Sulfate HFA 108 (90 Base) MCG/ACT Aerosol Solution 1 puff as needed Inhalation every 4 hrs , Taking Omeprazole 40 MG Capsule Delayed [...] Liters per minute continuos As needed , Discontinued Cefdinir 300 MG Capsule 1 cap(s) Orally Two times a day , Discontinued dexAMETHasone 2 MG Tablet 1 tablet Orally every 12 hrs , Discontinued Stiolto Respimat 2.5-2.5 MCG/ACT Aerosol Solution 2 puffs Inhalation Once a day , Medication List reviewed and reconciled with the patient * Allergies: N .K.D.A. Objective: * Vitals: W t: 000, Temp: 97.4, BP: 132/76, HR: 92, O2 Sat: 91%, Nurse: maame, Ht: 64. * Examination: G eneral Examination: General Appearance: N AD. N alexus: s upple, no lymphadenopathy. H eart: R SR. L ungs: c lear to auscultation. S kin: n ormal, no rash. P eripheral pulses: n ormal (2+) bilaterally. E xtremities: n o leg edema.? Assessment: * Assessment: 1. G ERD (gastroesophageal reflux disease) - K21.9 (Primary) 2 . F atigue - R53.83 3 . C OPD (chronic obstructive pulmonary disease) - J44.9 ?4. L tejal term use of drug - Z79.899 5 . C hronic respiratory failure, unspecified whether with hypoxia or hypercapnia - J96.10 6 . C hronic respiratory failure with hypoxia - J96.11 Plan: * Treatment: 2. F atigue L AB: P-Vitamin B12 (Collection Date & Time - 09/17/2024 09:35 AM) N ormal Value Reference Range V itamin B12 [phone] - pg/mL * Cassandra Cora 09/20/2024 03: 13:58 PM EDT > See phone encounter ?LAB: P-Comprehensive Metabolic Panel (CMP) (Collection Date & Time - 09/17/2024 09:35 AM)?Normal* Value Reference Range A /G Ratio 1.5 1.1-2.5 - * A lbumin 4.1 3.5-5.3 - g/dL * A lkaline Phosphatase 103 35-121 - IU/L * A LT (SGPT) 25 <5-47 - IU/L * A ST (SGOT) 25 <5-40 - IU/L * B ilirubin, Total 0.5 <0.2-1.2 - mg/dL * B UN 12 8-23 - mg/dL * C alcium 9.5 8.6-10.4 - mg/dL * C hloride 99 97-108 - mmol/L * C O2 30 22-32 - mmol/L * C reatinine 0.75 0.50-1.00 - mg/dL * G lucose 105 H 65-99 - mg/dL * P otassium 5.1 3.5-5.3 - mmol/L * S odium 139 135-145 - mmol/L * P rotein 6.8 6.0-8.3 - g/dL * e GFR by Creatinine 87 >59 - mL/min/1.73m2 * Cora Trujillo 09/20/2024 03: 13:58 PM EDT > See phone encounter ?LAB: P-TSH reflex to FT4 (Collection Date & Time - 09/17/2024 09:35 AM)? Normal* Value Reference Range T SH reflex to FT4 3.58 0.43-5.25 - mU/L * Cora Trujillo 09/20/2024 03: 13:58 PM EDT > See phone encounter ?LAB: P-Vitamin D 25-Hydroxy (Collection Date & Time - 09/17/2024 09:35 AM)? 16.5* Value Reference Range V itamin D 25-Hydroxy 16.5 L 30.0-100.0 - ng/mL * CassandraCora 09/20/2024 03: 13:58 PM EDT > See phone encounter 3.?lobsterman use of drug?LAB: CBC Venipuncture (in house) (Collection Date & Time - 09/17/2024)? Normal* Value Reference Range w bc 10.1 3.5 - 10 * l ymph 16.4% 15 - 50 * m id 5.3% 2 - 15 * g ran 78.3% 35 - 80 * r bc 5.13 3.5 - 5.5 * h gb 14.5 11.5 - 16.5 * h ct 45.0 35 - 55 * m cv 87.6 75 - 100 * m ch 28.3 25 - 35 * m chc 32.3 31 - 38 * p latlet 371 100 - 400 * Nataliya Fournier 09/17/2024 11:15: 43 AM EDT > CassandraCora 09/20/2024 03:13:58 PM EDT > See phone encounter * Procedure Codes: G 2211 Complex e/[place], [address] CBC WITH AUTO DIFF, G8783 BP SCR PRFRM RCMDD DEFIND SCR INTVL, G8752 MOST RECENT SYSTOLIC BP < 140MM HG, G8754 MOST RECENT DIASTOLIC BP < 90MM HG * Follow Up: 6 Months * Images: Billing Information: * Visit Code: 88898 Office Visit, Est Pt., Level 4. * Procedure Codes: G2211 Complex e/[place]. [address] CBC WITH AUTO DIFF. G8783 BP SCR PRFRM RCMDD DEFIND SCR INTVL. G8752 MOST RECENT SYSTOLIC BP < 140MM HG. G8754 MOST RECENT DIASTOLIC BP < 90MM HG. * Electronic signature of Sharyn Turcios MD on 09/27/2024 at 11:24 AM EDT Sign off status: Pending * Provider: Anaya Turcios M.D. Date: 0 09/17/2024 Generated for Dg richardson/Arleen/eTransmitting on: 0 09/27/2024 11:24 AM EDT History and Physical Notes * HPI (History of Present Illness) Category Sub-Category Detail Notes Category Not es ENT/respiratory COPD Pt here to f/u. Pt states inhaler was changed from Stiolto to Breztri by Dr. High in May. Pt states she has better results with Breztri Examination Category Sub-Category Detail Notes Category Not es General Examination Heart: RSR Lungs: clear to auscultatio n Extremities: no leg edema General Appearance: NAD Skin: normal, no rash Neck: supple, no lymphaden opathy Peripheral pulses: normal (2+) bilatera lly
--- OUTSIDE RECORDS SUMMARY | 2024-09-20 11:13 | XMS_ITS ---
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 Name Role Phone Jorge Seymour Primary Care Provider Varun Turcios [phone] REASON FOR VISIT Test Results* Medications Medication SIG (Take, Route, Frequency, Duration) Notes Start Date End Date Status Vitamin D3 1.25 MG (59910 UT) 1 capsule Orally weekly 09/20/2024 Acti ve Encounters Encounter Location Date Provider Diagnosis [facility] [address] [place] [id number] 09/20/2024 Varun Turcios Plan Of Treatment Medication Medication Name Sig Start Date Stop Date Notes Vitamin D3 1.25 MG (64503 UT) 1 capsule Orally weekly 08/30 Next Appt Details Provider Name:Varun Schumacher ry, 03/18/2025 10:15:00 AM, 1210 [facility] 36 [facility], [address], [place], [id number], Progress Notes * Essie HODGEOB:1959 (64 yo F)Acc No.[id number]:09/20/2024 Patient: Essie KNAPP :1960 A ge:64 Y S ex:Female Address:[address] [place] [address] [address] [place] [address] * Refills Start Vitamin D3 Capsule, 1.25 MG (97941 UT), Orally, 13, 1 capsule, weekly, Refills=1 Subjective: * Chief Complaints: * T est Results* * Medical History: * Surgical History: * Hospitalization/Major Diagno stic Procedure: * Medications: Objective: * Vitals: * Physical Examination: Assessment: Plan: * Treatment: * Procedure Codes: * true * Date: Generated for Dg richardson/Arleen/Sandysmitting on: 0 09/27/2024 11:24 AM EDT
[2024-09-25 20:34] LABS: Coronavirus 19, PCR Not Detected (NotDetected); Influenza A, PCR Not Detected (NotDetected); Influenza B, PCR Not Detected (NotDetected)
--- OUTSIDE RECORDS SUMMARY | 2024-09-27 11:24 | XMS_ITS | Patient Health Record ---
Author Organization [facility] Address [address] [facility] [address] [place] [id number] Care Team Providers Care Plumber Cub Name Role Phone Jorge Seymour Primary Care Provider Varun Turcios Unavailable [phone] Crystal Farley Unavailable [phone] Allergies No Known Allergies Results Component Value [...] Normal Performing Lab: Notes/Report: Test performed by [facility], WISHI [address] [place] [address] , [address], [place] [address] Antonio Washburn MD, Casing Splitter CLIA: [id number] Sodium 139 135-145 mmol/L Potassium 4.5 3.5-5.3 [...] Interpretation:Normal Performing Lab: Notes/Report: Test performed by [facility], [address] , [address] , [place] [address] Antonio Washburn MD, Casing Splitter CLIA: [id number] Cholesterol 183 <200 mg/dL Triglycerides 97 <150 [...] Interpretation:Normal Performing Lab: Notes/Report: Test performed by [facility] [address] [place] [address] , [address], [place] [address] Antonio Washburn MD, Casing Splitter CLIA: [id number] B-Type Natriuretic Peptide 76.0 <2.0-100.0 pg/ mL CBC Venipuncture (in house) Reviewed date:09/20/2024 03:14:09 [...] Interpretation:Normal Performing Lab: Notes/Report: Test performed by [facility] [address] [place] [address] , [address], [place] [address] Antonio Washburn MD, Casing Splitter CLIA: [id number] Vitamin B12 081 781-9686 pg/mL P-Comprehensive Metabolic Pa migdalia (CMP) Reviewed date:09/20/2024 03:14:09 PM Interpretation:Normal Performing Lab: Notes/Report: Test performed by [facility] [address] [place] [address] , [address], [place] [address] Antonio Washburn MD, Casing Splitter CLIA: [id number] Sodium 139 135-145 mmol/L Potassium 5.1 3.5-5.3 [...] Interpretation:Normal Performing Lab: Notes/Report: Test performed by [facility] [address] [place] [address] , [place] [address] Antonio Washburn MD, Casing Splitter CLIA: [id number] TSH reflex to FT4 3.58 0.43-5.25 mU/L P-Vitamin D 25-Hydroxy Reviewed date:09/20/2024 03:14:09 PM Interpretation:16.5 Performing Lab: Notes/Report: Test performed by [facility] [address] [place] [address] , [place] [address] Antonio Washburn MD, Casing Splitter CLIA: [id number] Vitamin D 25-Hydroxy 16.5 30.0-100.0 ng/mL Interpretation of Vitamin D 25 OH: < 20 ng/mL - Deficiency 20 - 29 ng/mL - Insufficiency 30 - 100 ng/mL - Sufficiency > 100 ng/mL - Super-therapeutic- toxicity may occur above this level. Clinical correlation required. Reason For Referral No Information Medications Medication SIG (Take, Route, Frequency, Duration) Notes Start Date End Date Status Albuterol Sulfate HFA 108 (90 Base) MCG/ACT 1 puff as needed Inhalation every 4 hrs Active Breztri Aerosphere 160-9-4.8 MCG/ACT 2 puffs Inhalation Twice a day Active Omeprazole 40 MG 1 capsule 30 minutes before morning meal Orally Once a day; Duration: 90 days Active Vitamin D3 1.25 MG (65433 UT) 1 capsule Orally weekly 09/20/2024 Acti ve Potassium Chloride ER 10 MEQ TAKE 1 TABLET BY MOUTH EVERY DAY WITH FOOD; Duration: 30 Active Furosemide 20 MG TAKE 1 TABLET BY PARISA TH DAILY; Duration: 30 Active Portable System and conserving device - 3 Liters per minute continuos As needed 03/09/2024 Active Social History Tobacco Use: Social History Observation Description Date Smoking Status WARNING: Information temporarily unavailable CURRENT TOBACCO USE: Question Answer Notes Are you a: 1/2 ppd, since a ge 13 Problems Problem Type SNOMED Code ICD Code Onset Dates Problem Status W/U Status Risk Notes Problem Gastroesophageal reflux disease (256689158) GERD (gastroesophag eal reflux disease) (K21.9) Active confirmed Problem COPD - Chronic obstructive pulmonary disease (16005748) COPD (chronic obstructive pulmonary disease) (J44.9) Active confirmed Problem Chronic respiratory failure (33596981) Chronic respiratory failure, unspecified whether with hypoxia or hypercapnia (J96.10) Active confirmed Problem Chronic respiratory failure (10985878) Chronic respiratory failure with hypoxia (J96.11) Active confirmed Problem 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) Active confirmed Vital Signs Heart Rate 92 /min 09/17/2024 Blood pressure diastolic 76 mm Hg 09/17/2024 Height 64 in 09/17/2024 Blood pressure systolic 132 mm Hg 09/17/2024 Weight 000 lbs 09/17/2024 BMI 29.45 kg/m2 01/05/2024 Encounters Encounter Location Date Provider Diagnosis [facility] 1210 [facility] [address] [place] [id number] 11/24/2023 Varun [place] COPD (chronic obstructive pulmonary disease) J44.9 and PERRY (dyspnea on exertion) R06.09 [facility] [address] [place] [facility] [address] [place] [id number] 01/05/2024 Crystal Farley Leg edema, left R60. 0 and Leg edema, right R60.0 [facility] [address] [facility] [address] [place] [id number] 2024 Varun [place] Acute cough R05.1 ; COPD (chronic obstructive pulmonary disease) J44.9 ; SOB (shortness of breath) R06.02 ; Chronic respiratory failure, unspecified whether with hypoxia or hypercapnia J96.10 ; Screening, lipid Z13.220 and Diabetes mellitus screening Z13.1 [facility] [address] [place], [place] [id number] 09/17/2024 Varun [place] GERD (gastroesophage al reflux disease) K21.9 ; Fatigue R53.83 ; COPD (chronic obstructive pulmonary disease) J44.9 ; termite helper use of drug Z79.899 ; Chronic respiratory failure, unspecified whether with hypoxia or hypercapnia J96.10 and Chronic respiratory failure with hypoxia J96.11 [facility] [address] [place], [place] [id number] 09/27/2024 R Sav Martínezt [facility] [address] [place], [place] [id number] 09/20/2024 Varun [place] [facility] [address] [place], [place] [id number] 12/09/2023 R Sav Jaquezfleet [facility] [address] [place], [place] [id number] 12/12/2023 R Sav Martínezt [facility] [address] [place], [place] [id number] 03/08/2024 Varun [place] Respiratory failure with hypoxia, unspecified chronicity J96.91 and COPD (chronic obstructive pulmonary disease) J44.9 Assessments Encounter Date Diagnosis (ICD Code) Assessment Notes Treatment Notes Treatment Clinical Notes Section Notes 11/24/2023 COPD (chronic obstructive pulmonary disease) (ICD-10 - J44.9) Patient to call [facility] medical about nebulizer and portable oxygen concentrator. She has an appointment with Dr. High in a few weeks. She may need a 6 minute walk test 11/24/2023 PERRY (dyspnea on exertion) (ICD-10 - R06.09) 01/05/2024 Leg edema, left (ICD-10 - R60.0) low salt diet; walking program 01/05/2024 Leg edema, right (ICD-10 - R60.0) 03/08/2024 COPD (chronic obstructive pulmonary disease) (ICD-10 - J44.9) 03/08/2024 Respiratory failure with hypoxia, unspecified chronicity (ICD-10 - J96.91) 2024 COPD (chronic obstructive pulmonary disease) (ICD-10 - J44.9) 2024 Acute cough (ICD-10 - R05.1) 09/17/2024 GERD (gastroesophagea l reflux disease) (ICD-10 - K21.9) 09/17/2024 Fatigue (ICD-10 - R53.83) 2024 SOB (shortness of breath) (ICD-10 - R06.02) 09/17/2024 COPD (chronic obstructive pulmonary disease) (ICD-10 - J44.9) 09/17/2024 shelter use of drug (ICD-10 - Z79.899) 2024 Chronic respiratory failure, unspecified whether with hypoxia or hypercapnia (ICD-10 - J96.10) 09/17/2024 Chronic respiratory failure, unspecified whether with hypoxia or hypercapnia (ICD-10 - J96.10) 2024 Screening, lipid (ICD-10 - Z13.220) 09/17/2024 Chronic respiratory failure with hypoxia (ICD-10 - J96.11) 2024 Diabetes mellitus screening (ICD-10 - Z13.1) Plan Of Treatment Pending Test Test Name Order Date P-BNP (Brain Natriuretic Peptide) 2023 Next Appt Details Provider Name:Varun Schumacher ry, 03/18/2025 10:15:00 AM, [address] [facility], [address], [place], [place], [id number], Insurance Providers Payer Name Payer Address Payer Phone Subscriber Number Group Number Insured Name Patient Relationship to Insured Coverage Start Date Coverage End Date [employer] (MEDICAR E) [address] [address] [place] [phone] [id number] Essie Keating Self - patient is the insured Medical (General) History Medical History History ICD Code Tobacco addiction, 50 pack year smoking history 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
== END 2024-09-25 23:59 | disposition home or self-care (01) ==
LOC: LAB.DROPOF 09-27 11:23
PROVIDERS: PCP Family Medicine; Visit Provider Nurse Practitioner Family
DX: J44.9 Chronic obstructive pulmonary disease, unspecified (principal); Z86.16 Personal history of COVID-19
CPT/HCPCS: 87636

== ENCOUNTER 2025-02-07 10:48 | Outpatient (CLI) | payer MEDICARE, SELFPAY ==
--- NOTE | 2025-02-07 11:00 | CT_ITS ---
FINAL REPORT CLINICAL HISTORY: lung cancer screening. former smoker - quit 1 year ago. patient smoked 1/2 a pack per day x 51 years. patient has COPD. COMPARISON: 02/02/2024 FINDINGS: CT CHEST LOW DOSE SCREENING HISTORY: Screening exam for lung cancer. 65-year-old female, former smoker quit 1 year ago, 03-herm-rzyo history. DOSE: CTDI vol: 2.90 mGy, DLP: 96.38 mGy*cm TECHNIQUE: Axial CT without IV contrast administration using low dose protocol. This study was performed with techniques to keep radiation doses as low as reasonably achievable, (ALARA). Individualized dose reduction techniques using automated exposure control or adjustment of mA and/or kV according to the patient's size were employed. No acute lung disease is present. There is redemonstration of the right lower lobe nodule, seen on the prior exam, best seen on image 53 of series 4 and measuring up to 6 mm in size, stable. There is a vague opacity in the posterior segment of the left upper lobe, which is also stable. Changes of emphysema are once again noted. No new suspicious nodule is present. No pleural or pericardial effusion is seen. No adenopathy or mass lesion is present. 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 A small hiatal hernia is once again noted. The left adrenal mass noted on the prior CT is also stable. IMPRESSION: Stable nodules as described above, without a new suspicious nodule identified. LUNG RADS CATEGORY 2 RECOMMENDATION: 12 month LDCT follow up Reviewed, Interpreted and Dictated by Jin Taveras MD Transcribed by Juana Gandhi Authenticated and [facility]
== END 2025-02-07 23:59 | disposition home or self-care (01) ==
LOC: RAD 10:48
PROVIDERS: PCP Family Medicine; Visit Provider Internal Medicine Pulmonary Disease
DX: Z12.2 Encounter for screening for malignant neoplasm of respiratory organs (principal); Z87.891 Personal history of nicotine dependence; R91.1 Solitary pulmonary nodule; J43.9 Emphysema, unspecified; I71.22 Aneurysm of the aortic arch, without rupture; K44.9 Diaphragmatic hernia without obstruction or gangrene; E27.9 Disorder of adrenal gland, unspecified
CPT/HCPCS: 71271